=== PATIENT | male | born 1985 | race Caucasian/White ===

== ENCOUNTER 2020-06-15 07:02 | Outpatient (REF) | payer OTHER, SELFPAY ==
[2020-06-15 07:25] LABS: COVID-19 Test Negative (Negative)
== END 2020-06-15 07:03 | disposition home or self-care (01) ==
LOC: HO.LAB 07:02
PROVIDERS: Visit Provider Internal Medicine
DX: Z20.828 Contact with and (suspected) exposure to other viral communicable diseases (principal)
CPT/HCPCS: 87635

== ENCOUNTER 2020-06-17 06:13 | Outpatient (REF) | payer OTHER, SELFPAY ==
[2020-06-17 07:01] LABS: COVID-19 Test Negative (Negative)
== END 2020-06-17 06:14 | disposition home or self-care (01) ==
LOC: HO.LAB 06:13
PROVIDERS: Visit Provider Internal Medicine
DX: Z20.828 Contact with and (suspected) exposure to other viral communicable diseases (principal)
CPT/HCPCS: 87635

== ENCOUNTER 2020-06-21 06:02 | Outpatient (REF) | payer OTHER, SELFPAY ==
[2020-06-21 07:27] LABS: COVID-19 Test Negative (Negative)
== END 2020-06-21 06:03 | disposition home or self-care (01) ==
LOC: HO.LAB 06:02
PROVIDERS: Visit Provider Internal Medicine
DX: Z20.828 Contact with and (suspected) exposure to other viral communicable diseases (principal)
CPT/HCPCS: 87635

== ENCOUNTER 2020-07-05 12:57 | Outpatient (REF) | payer OTHER, SELFPAY ==
[2020-07-05 13:19] LABS: COVID-19 Test Negative (Negative)
== END 2020-07-05 12:58 | disposition home or self-care (01) ==
LOC: HO.LAB 12:57
PROVIDERS: Visit Provider Internal Medicine
DX: Z20.828 Contact with and (suspected) exposure to other viral communicable diseases (principal)
CPT/HCPCS: 87635; C9803

== ENCOUNTER → 2023-03-20 08:54 | Outpatient (BNVA) | payer OTHER, SELFPAY | PROVIDERS: Visit Provider Physician Assistant Surgical ==

== ENCOUNTER 2023-03-29 08:25 | Outpatient (REF) | payer OTHER, SELFPAY ==
[2023-04-01 11:42] LABS: H Pylori Breath Test Negative (Negative)
== END 2023-03-29 08:26 | disposition home or self-care (01) ==
LOC: HO.LNP 08:25
PROVIDERS: Visit Provider Physician Assistant Surgical
DX: Z11.2 Encounter for screening for other bacterial diseases (principal); E66.01 Morbid (severe) obesity due to excess calories
CPT/HCPCS: 83013; 99211

== ENCOUNTER 2023-03-29 08:25 | Outpatient (AMB) | payer OTHER, SELFPAY ==
--- NOTE | 2023-03-29 08:27 | A.OFFVIS_ITS ---
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 His goal is to lose weight and achieve a healthy lifestyle as well as to improve, if not resolve, obesity related medical conditions, including SAVANNAH. He reports first being concerned about his weight 10 years ago, highest weight to date was 322. Current weight is 318.4 pounds with a BMI of 47. He has tried multiple methods of weight loss including fad diets, exercise without permanent results. He lives with his best friend. 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 He wakes at:?3 pm, and goes to bed at?10 am. Dinner is at 7pm. 4 pm fast food 2 am chicken strips Other snacks: slim jims 3 per day, chips, oreos Liquids: 64-80 oz daily Alcohol/marijuana/tobacco intake: no etoh, smoke cannabis daily, no tobacco Exercise: [employer], 3-4 x per week, cardio (treadmill/stationary bike - 10-15 minutes) GERD score: 5 SHELLI score: 7 ESS score: 6 QOL score: 101 PFSH Surgical History Hx of bladder endoscopy Hx of cholecystectomy Hx of oral surgery Social History Alcohol intake: current Alcohol intake frequency: holidays/special occasions only Patient Tobacco Use Status: Never used Tobacco Physical Exam Vital Signs: Last Vital Signs Temp 97.6 F 03/29/23 08:33 Pulse 68 03/29/23 08:33 BP 127/67 03/29/23 08:33 Pulse Ox 98 03/29/23 08:33 Oxygen Delivery Method Room Air 03/29/23 08:33 BMI result Body Mass Index 47.0 Const General: cooperative, healthy appearing and no acute distress Orientation/consciousness: patient oriented x3 HEENT Head: Yes normal to inspection Ears: hearing grossly normal bilaterally General nose exam: Normal external nose present Face and sinus: Yes normal facial exam Eyes General: appearance normal, both eyes and all related structures Resp Effort & Inspection: normal respiratory effort Auscultation: clear to auscultation bilaterally Cardio Rate: regular rate Rhythm: regular rhythm Heart sounds: S1 normal heart sound present and S2 normal heart sound present GI Inspection: Yes normal to inspection, No distended and Yes obesity Palpation (GI): Soft to palpation, nontender and no guarding Auscultation: normal bowel sounds Skin General skin exam: no rashes or lesions noted Neuro General: patient oriented x3 Extrem General: No edema Psych Appearance: grossly normal Mental Status: mental status grossly normal Speech and movement: Normal speech and movement present Affect: normal affect Attitude: cooperative Assessment & Plan Assessment & Plan (1) Morbid obesity: Code(s): E66.01 - Morbid (severe) obesity due to excess calories Plan: This is a?38 yo male who will start our SWL program to prepare for bariatric surgery.? Blood work, h pylori , CXR, ECG, Abd US and UGI have been ordered. He is being scheduled for RD and BH initial consultations. He will start SWL classes and watch the first three videos before his next appointment. ? Adequate sleep of 7-8 hours per night discussed, awakening at 3 pm and going to bed at 10 am given that you work overnights. ? Purchase body composition analyzer scale (Rosy owens or Amilcar recommended) and check weight weekly. The best time to do this is first thing in the morning after going to the bathroom. 1. Nutritional counseling: Be sure to careful read the number of scoops per shake Start with 2 Pure Protein shakes ([employer], [employer], [employer]), (1 scoop in 8 oz low fat unsweetened almond milk or water each) First shake at 3pm-5pm Dinner at 6pm (10 forks of protein and 10 forks of salad/vegetables). Meal to include lean meat (beef, fish, pork, turkey, chicken), cooked vegetables or a s alad with olive oil and/or fruits (berries, pears, apples, kiwi). Avoid salt, breads, potatoes, rice, pasta, desserts. 1 protein bar ([employer] Perfect bars at [employer], [employer], or [employer]) at 9pm-11pm. Second shake at 1am-3am Another bar at 5am-7am Try to drink 64 oz of water daily and avoid soda and juices. ?2. Each shake would be drunk slowly, like coffee in a period of 2 hours. ?3. Cut each bar in 4 pieces and eat each piece in 30 min ?to make each bar last 2 hours. ?4. I emphasized the importance of measuring accurately the food portion and measure it carefully when serving the food on the plate ?5. The meal portions include 10 full-size forks of meat and 10 full-size forks of salad. You always eat the meat portion but you can replace up to half of the forks of salad/vegetables with rice, potatoes or pasta, or a fruit ?if you like. The less you do it the better weight loss will be. ?6. One full-size fork is what can be scooped on the fork without falling aside and not what can be bit with the fork. Use regular forks like those you find in a typical restaurant. ?7.? Please send me weight measurements as soon as possible and then once a week. Always include your diet and exercise plan. Alternatively come weekly at the office for weight checks and send me the measurements. ?8. Exercise counseling: Begin by watching a stretching for beginners video. Start slowly and begin to stretch your muscles. You should do this before and after each exercise session to prevent injury. Please continue to go to [facility] [facility] gym near your home. Ask the manager paper or one of the trainers how to use the machines if you are unfamiliar with them. Start elliptical with a resistance of 2. Increase resistance by 1 every 3 min to your most comfortable resistance with a max resistance of 8. Reduce the resistance by 1 every 3 minutes back down to 2 and repeat cycles for 300 calories. Alternatively, start treadmill with a speed of 3.0 and incline of 0, increasing incline by 1 every 3 minutes to the highest comfortable level (max 6 for now) then decrease in the same fashion. Repeat process to a goal of 300 calories. Goal of 2000 calories burned or more weekly. You may also consider use of the stationary bike. The easiest would be to chose the fat-burn or interval training program on the machine and do this until you reach the 300 calorie goal. Alternatively, you can manually adjust the resistance in a similar fashion as mentioned above, (resistance of 2-8 with a goal speed of 12 mph). Tracking calories is essential. 9. Alternatively start walking outside daily, tracking calories with a goal of 300 calories per day, daily. You can download the adri [employer] which can track your time, distance and calories while walking outside. You press start in the adri when you start and then stop when you are finished. 10.? It is important to communicate by text weekly, your weight and if you are having any problems with the plans. 11. Please get labs, EKG and chest X-Ray within 1 week. 12. Discussed and answered all questions regarding?obtained consent to participate in the [facility]?Registry. 13. Please follow the diet plan exactly, without any change. If you do not like something about the plan or you feel hungry, you need to communicate with me so I can help you revise the plan. You should not change the plan yourself. Text me at [phone] 14. Goal is to lose at least 12 pounds in the first month 15. Goal is to lose 10% of your weight before surgery, which is about 32 lbs. Ultimate weight goal: 286 lbs before surgery Patient is morbidly obese and is not considered stable at this time.?I spent a total of 70 minutes reviewing/updating records, examining the patient and counseling the patient on weight management as detailed above. Orders: Orders Vitamin B12 and Folate Today E66.01 - Morbid (severe) obesity due to excess calories Comprehensive Met. Panel Today E66.01 - Morbid (severe) obesity due to excess calories C Reactive Protein Today E66.01 - Morbid (severe) obesity due to excess calories Ferritin Today E66.01 - Morbid (severe) obesity due to excess calories Hemoglobin A1c Today E66.01 - Morbid (severe) obesity due to excess calories Insulin Today E66.01 - Morbid (severe) obesity due to excess calories IRON PROFILE Today E66.01 - Morbid (severe) obesity due to excess calories Lipid Panel Today E66.01 - Morbid (severe) obesity due to excess calories PTHI Today E66.01 - Morbid (severe) obesity due to excess calories TSH reflex Free T4 Today E66.01 - Morbid (severe) obesity due to excess calories Vitamin A Today E66.01 - Morbid (severe) obesity due to excess calories Vitamin B1 Today E66.01 - Morbid (severe) obesity due to excess calories Vitamin D 25-OH Total Today E66.01 - Morbid (severe) obesity due to excess calories Zinc Today E66.01 - Morbid (severe) obesity due to excess calories ECG 12 lead EKG Today E66.01 - Morbid (severe) obesity due to excess calories FL upper GI w air Today E66.01 - Morbid (severe) obesity due to excess calories Complete Blood Count Auto Diff Today E66.01 - Morbid (severe) obesity due to excess calories H Pylori Breath Test Today E66.01 - Morbid (severe) obesity due to excess calories US abdomen comp w elastography Today E66.01 - Morbid (severe) obesity due to excess calories XR chest 2V Today E66.01 - Morbid (severe) obesity due to excess calories Referrals Behavioral Health Referral E66.01 - Morbid (severe) obesity due to excess calories Nutrition/Dietitian Referral E66.01 - Morbid (severe) obesity due to excess calories Coding Level of Care Code New Pt Level 5 (01716) Diagnoses Morbid obesity E66.01 Time Spent (min) 74
[2023-03-29 08:33] VITALS: BP 127/67; PULSE 68; TEMP 36.4; O2SAT 98; BMI 47.0
== END 2023-03-29 09:38 | disposition home or self-care (01) ==
PROVIDERS: Visit Provider Physician Assistant Surgical
DX: E66.01 Morbid (severe) obesity due to excess calories (principal); Z68.42 Body mass index [BMI] 45.0-49.9, adult
CPT/HCPCS: 99205

== ENCOUNTER 2023-04-04 12:49 | Outpatient (REF) | payer OTHER, SELFPAY ==
--- NOTE | ~2023-04-04 | XR_ITS ---
EXAMINATION: XR CHEST CLINICAL INFORMATION: Morbid (severe) obesity due to excess calories COMPARISON: Chest 10/16/2015 TECHNIQUE: 2 views of the chest were obtained. FINDINGS: The lungs are clear with no focal consolidation, interstitial pulmonary edema or pneumothorax. No pleural effusion. The cardiomediastinal silhouette is within normal limits. No acute osseous abnormality. XR/XR chest 2V IMPRESSION: No acute cardiopulmonary disease.
--- NOTE | 2023-04-04 12:55 | ECG_ITS ---
Test Reason : e66.01 Blood Pressure : / mmHG Vent. Rate : 062 BPM Atrial Rate : 062 BPM P-R Int : 148 ms QRS Dur : 080 ms QT Int : 410 ms P-R-T Axes : 025 -10 009 degrees QTc Int : 416 ms Normal sinus rhythm Normal ECG When compared with ECG of 19-FEB-2017 10:58, No significant changes seen Referred By: Vidal Tian Electronically Signed By:Davion Maldonado
[2023-04-04 13:08] LABS: MANUAL DIFF FLAG NO
[2023-04-04 13:13] LABS: Basophils Percent Auto 0.7 % (0-2); Eosinophils Absolute Auto 0.1 X10*3/uL (0.0-0.4); Eosinophils Percent Auto 1.6 % (0-4); Hematocrit 43.4 % (42.0-52.0); Hemoglobin 14.3 g/dl (14.0-18.0); Imm Gran Abs Auto 0.02 X10*3/uL (0.00-0.03); Imm Gran Pct Auto 0.3 % (0.0-0.4); Lymphocytes Absolute Auto 1.5 X10*3/uL (1.2-4.9); Lymphocytes Percent Auto 25.4 % (20-40); Mean Corpuscular HGB Conc 32.9 g/dl (31.0-36.0); Mean Corpuscular Hemoglobin 28.4 pg (27.0-33.0); Mean Corpuscular Volume 86.1 fL (80.0-98.0); Mean Platelet Volume 8.6 fL (9.4-12.4); Monocytes Absolute Auto 0.4 X10*3/uL (0.1-1.2); Monocytes Percent Auto 7.6 % (2-11); Neutrophils Absolute Auto 3.7 x10*3/uL (2.0-8.3); Neutrophils Percent Auto 64.4 % (45-73); Platelet Count 383 X10*3/uL (160-400); Red Blood Count 5.04 X10*6/uL (4.60-5.80); Red Cell Distribution Width 13.1 % (11.0-16.0); White Blood Count 5.8 X10*3/uL (4.8-10.8)
[2023-04-04 13:37] LABS: Estimated Average Glucose 100 mg/dL; Hemoglobin A1c % 5.1 %
[2023-04-04 15:02] LABS: Alanine Aminotransferase 52 U/L (0-40); Albumin Level 4.3 g/dL (3.5-5.0); Alkaline Phosphatase 74 U/L (39-117); Anion Gap 15 (12-20); Aspartate Amino Transferase 42 U/L (5-37); Bilirubin Total 0.8 mg/dL (0.0-1.0); Blood Urea Nitrogen 14 mg/dL (9-16); C Reactive Protein 0.45 mg/dL (< or = 0.50); Calcium 9.3 mg/dL (8.4-10.2); Carbon Dioxide 23 mmol/L (22-29); Chloride 105 mmol/L (96-108); Cholesterol 180 mg/dL; Estimated Glomerular Filt Rate > 60; Glucose Random 81 mg/dL (60-115); HDL Cholesterol 29 mg/dL; Iron 95 mcg/dL (45-160); LDL Cholesterol Calculated 131 mg/dl; Percent Iron Saturation 29 % (15-50); Sodium 139 mmol/L (135-145); Total Iron Binding Capacity 326 mcg/dL (228-428); Total Protein 8.1 g/dL (6.5-8.0); Triglycerides 104 mg/dL; Unsaturated Iron Binding 231 ug/dL
[2023-04-04 15:10] LABS: Ferritin 267 ng/mL (20-250); Insulin 11 uU/mL (2-29); TSH reflex Free T4 0.87 uIU/mL (0.32-4.0); Vitamin D 25-OH Total 17.8 ng/mL (>30)
[2023-04-04 15:19] LABS: Folate 10.3 ng/mL (> or = 4.0); Vitamin B12 847 pg/mL (200-900)
[2023-04-06 19:38] LABS: Calcium (PTHI) 9.7 mg/dL (8.6-10.3); PTHI 67 pg/mL (16-77)
[2023-04-08 15:43] LABS: Zinc 73 mcg/dL (60-130)
[2023-04-10 15:18] LABS: Vitamin B1 <6 nmol/L (8-30)
[2023-04-12 01:29] LABS: Vitamin A 44 mcg/dL (38-98)
== END 2023-04-04 12:50 | disposition home or self-care (01) ==
LOC: HO.XRAY 12:49
PROVIDERS: Visit Provider Physician Assistant Surgical
DX: E66.01 Morbid (severe) obesity due to excess calories (principal); Z20.2 Contact with and (suspected) exposure to infections with a predominantly sexual mode of transmission
CPT/HCPCS: 36415; 71046; 80053; 80061; 82306; 82607; 82728; 82746; 83036; 83525; 83540; 83970; 84425; 84443; 84590; 84630; 85025; 86140; 93005

== ENCOUNTER → 2023-04-04 12:55 | Outpatient (BNV) | payer OTHER, SELFPAY | PROVIDERS: Visit Provider Internal Medicine Cardiovascular Disease | DX: E66.01 Morbid (severe) obesity due to excess calories (principal) | CPT/HCPCS: 93010 ==

== ENCOUNTER 2023-04-11 13:00 | Outpatient (AMB) | payer OTHER, SELFPAY ==
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
== END 2023-04-11 14:23 | disposition home or self-care (01) ==
LOC: HO.HBST 13:43
PROVIDERS: Visit Provider Counselor Mental Health
DX: F43.20 Adjustment disorder, unspecified (principal)
CPT/HCPCS: 90791

== ENCOUNTER → 2023-04-11 13:00 | Outpatient (BNVA) | payer OTHER, SELFPAY | PROVIDERS: Visit Provider Counselor Mental Health ==

== ENCOUNTER 2023-04-18 09:14 | Outpatient (AMB) | payer OTHER, SELFPAY ==
--- NOTE | 2023-04-18 09:06 | MHC.AMNUTRGE ---
Intake Intake Visit Reasons: VIDEO Initial Nutrition SWL Allergies No Known Allergies Allergy (Verified 03/29/23 08:37) HPI Nutrition Presentation Reason for consult elevated BMI Diet Assmnt Details Hasn't purchased the bars yet. Has the shake and in between has a salad with protein. not sure how much as he doesn't measure portions Two Each shake 1 scoop Premier protein with almond milk Lost his grandmother last Sunday - is an emotional eaterso had been struggling. Exercise: Gym 2-3x per week cardio (bike, elliptical, treadmill) weight lifting machine 60 - 90 minutes SWL online classes: none yet Dietary counseling reduction Meal frequency regular: lunch, dinner and snacks Lifestyle Eating out 4 or more times/week Food frequency Dairy: daily, Fruit: daily, Vegetables: several times weekly (likes lettuce, carrots, cucumbers ), Grains/pasta/breads/cereal (carbs): daily, Meats/poultry/fish (protein): daily (no seafood. ), Water: daily, Soda: daily, Juice: never, Coffee: occasionally and Sports/energy drinks: daily (energy drinks ) Diagnosis Nutrition problem #1 overweight/obesity As related to (etiology) #1 excess energy intake and physical inactivity As evidenced by (sign/symptom) #1 high BMI Monitoring/Goals Nutrition problem monitoring total energy intake, level of knowledge/skill, total PRO intake, total CHO intake and weight Outcome progress progressing Learning/Education Readiness to learn good Stages of change action Educational materials provided Yes Most Recent Diabetes Results: Cholesterol 180 mg/dL 04/04/23 HDL Cholesterol 29 mg/dL 04/04/23 Triglycerides 104 mg/dL 04/04/23 Creatinine 0.96 mg/dL (0.5-1.4) 04/04/23 Blood Urea Nitrogen 14 mg/dL (9-16) 04/04/23 Sodium 139 mmol/L (135-145) 04/04/23 Potassium 4.0 mmol/L (3.3-5.1) 04/04/23 Chloride 105 mmol/L (96-108) 04/04/23 Carbon Dioxide 23 mmol/L (22-29) 04/04/23 Calcium 9.3 mg/dL (8.4-10.2) 04/04/23 AST 42 U/L (5-37) H 04/04/23 ALT 52 U/L (0-40) H 04/04/23 Total Protein 8.1 g/dL (6.5-8.0) H 04/04/23 Albumin 4.3 g/dL (3.5-5.0) 04/04/23 PFSH Surgical History Hx of bladder endoscopy Hx of cholecystectomy Hx of oral surgery Social History Alcohol intake: current Alcohol intake frequency: holidays/special occasions only Patient Tobacco Use Status: Never used Tobacco Assessment & Plan Assessment & Plan (1) Morbid obesity: Code(s): E66.01 - Morbid (severe) obesity due to excess calories Patient Instructions: Recommended for now, focus on high protein meals and consider increasing shakes until able to get the bars . Also recommended increasing exercise to goal of 4x per week, 30 minutes cardio and 30-60 minutes weights. complete online classes and f/u 05/17 9:30 Telehealth Telehealth Location of provider rendering services: practice address Location of patient: address on file Patient Identification confirmed using: Name, : Yes Telehealth method: video Patient verbally consented to treatment: Yes Patient verbally consented to billing insurance company: Yes Patient informed of any privacy concerns related to visit: Yes Minutes spent on Phone/Video with Pt.: 25 Coding Level of Care Code Nutr Indiv Intake (42692) Diagnoses Morbid obesity E66.01 Time Spent (min) 25
== END 2023-04-18 09:26 | disposition home or self-care (01) ==
LOC: HO.HBS 09:14
PROVIDERS: Visit Provider Dietitian, Registered
DX: E66.01 Morbid (severe) obesity due to excess calories (principal)

== ENCOUNTER → 2023-04-18 09:14 | Outpatient (BNVA) | payer OTHER, SELFPAY | PROVIDERS: Visit Provider Dietitian, Registered | DX: E66.01 Morbid (severe) obesity due to excess calories (principal); Z71.3 Dietary counseling and surveillance | CPT/HCPCS: 97802 ==

== ENCOUNTER 2023-04-20 08:00 | Outpatient (AMB) | payer OTHER, SELFPAY ==
--- NOTE | 2023-04-20 09:12 | MHC.OFFVISWM ---
Intake Intake Visit Reasons: TV Follow Up/[facility]idal Allergies No Known Allergies Allergy (Verified 04/20/23 09:13) Medication List - Last Reconciled 04/20/23 by Damion Smallwood MD cholecalciferol (vitamin D3) 125 mcg PO DAILY PRN 90 days [JXT5 supplement PO BID] thiamine HCl (vitamin B1) 100 mg PO DAILY 90 days HPI TV Follow Up/Vidal HPI Details Start time: 8.55am, End time: 9.38am ?I spent 38 minutes speaking with the patient on the phone plus an additional 5 minutes reviewing and updating records for a total of 43 minutes HPI Comments History of Present Illness Details Overall weight loss: 7.9lbs, or 2.48% TBWL Is doing 2 Pure protein shakes (1 scoop each in 8oz almond milk), one Zone Perfect protein bar, 2 boiled eggs and a meal (10 forks of protein and 10 forks of salad or vegetables) Exercise: Gym x3/wk doing weight exercises and treadmill for 20min PFSH Medical History (Updated 04/20/23 @ 09:15 by Damion Smallwood MD) Back pain Knee pain Surgical History Hx of bladder endoscopy Hx of cholecystectomy Hx of oral surgery Social History Alcohol intake: current Alcohol intake frequency: holidays/special occasions only Patient Tobacco Use Status: Never used Tobacco Assessment & Plan Assessment & Plan (1) Morbid obesity: Code(s): E66.01 - Morbid (severe) obesity due to excess calories Plan: 1. Plan for lap sleeve gastrectomy. If diaphragmatic or ventral hernias are present at time of surgery, these will be repaired laparoscopically as well. Risks and complications were discussed in detail including possible conversion to an open procedure, anastomotic leak, bleeding requiring transfusion, small bowel obstruction, , DVT and pulmonary embolism, cardiac, or pulmonary complications, as senior living complications such as anastomotic ulcer, insufficient weight loss and vitamin deficiencies. I emphasized the importance of close follow-up, adherence to instructions and good communication. 2. Continue same nutritional plan of dinner at 6pm (10 forks of protein and 10 forks of salad/vegetables), 2 Pure Protein shakes (1 scoop in 8 oz low fat unsweetened almond milk or water each) at 9pm-11pm and 1am-3am, a Zone Perfect protein bar at 4am-6am and a second bar or 2 boiled eggs at 7am-9am. First shake at 3pm-5pm 3. Exercise: Start treadmill with an incline of 2.0 and speed of 3.0. Increase incline by 1 every 3 min to a max incline of 8.0, stay 3min at 8.0 and then return to 2.0 and repeat same steps until calorie goal is met. Goal is to burn 2000 calories per week on exercise, which means either 300 calories daily, or 400 calories 5 days per week, or 500 calories 4 days per week, or 650 calories 3 days per week. 4. Alternatively purchase a stationary bike, elliptical or treadmill at home that can track calories. Let me know if you do so I can give you an exercise plan. 5. Buy a body compositon scale and send me weight measurements weekly on (2) SAVANNAH (obstructive sleep apnea): Code(s): G47.33 - Obstructive sleep apnea (adult) (pediatric) (3) Hyperlipidemia: Code(s): E78.5 - Hyperlipidemia, unspecified Telehealth Telehealth Location of provider rendering services: practice address Location of patient: address on file Patient Identification confirmed using: Name, : Yes Telehealth method: voice only Patient verbally consented to treatment: Yes Patient verbally consented to billing insurance company: Yes Patient informed of any privacy concerns related to visit: Yes Minutes spent on Phone/Video with Pt.: 43 Coding Level of Care Code Tele Est Pt Level 5 (84640) Diagnoses Morbid obesity E66.01 SAVANNAH (obstructive sleep apnea) G47.33 Hyperlipidemia E78.5 Time Spent (min) 43
== END 2023-04-20 09:39 | disposition home or self-care (01) ==
LOC: HO.HBS 08:00
PROVIDERS: Visit Provider Surgery
DX: E66.01 Morbid (severe) obesity due to excess calories (principal); Z68.39 Body mass index [BMI] 39.0-39.9, adult; G47.33 Obstructive sleep apnea (adult) (pediatric); E78.5 Hyperlipidemia, unspecified
CPT/HCPCS: 99215

== ENCOUNTER → 2023-04-20 08:00 | Outpatient (BNVA) | payer OTHER, SELFPAY | PROVIDERS: Visit Provider Surgery ==

== ENCOUNTER 2023-05-11 08:06 | Outpatient (AMB) | payer OTHER, SELFPAY ==
--- NOTE | 2023-05-11 08:30 | MHC.OFFVISWM ---
Intake VS Expanded 05/11/23 08:55 Height 5 ft 9 in Weight 297 lb 8 oz BMI 43.9 Body Fat 142.9 Body Fat Percentage 48 Free Fat Mass 155 Visceral Mass 26 Water Mass 111.9 BMR 1,888 Intake Visit Reasons: TV Follow Up SWL Allergies No Known Allergies Allergy (Verified 04/20/23 09:13) HPI TV Follow Up SWL HPI Details Start time: 8.30am, End time: 9.02am ?I spent 27 minutes speaking with the patient on the phone plus an additional 5 minutes reviewing and updating records for a total of 32 minutes HPI Comments History of Present Illness Details Overall weight loss: 20.6lbs, or 6.47% TBWL Is doing one Fairlife protein shake or 2 eggs, another protein shake, one meal (10 forks of protein and 10 forks of salad or vegetables), another shake or a protein bar, 2 Atkins protein bars Exercise: doing Gym x2-3/week doing treadmill for 300 calories and outside walking x2/week for 1000 PFSH Medical History (Updated 04/20/23 @ 09:15 by Damion Smallwood MD) Back pain Knee pain Surgical History Hx of oral surgery Hx of bladder endoscopy Hx of cholecystectomy Social History Alcohol intake: current Alcohol intake frequency: holidays/special occasions only Patient Tobacco Use Status: Never used Tobacco Assessment & Plan Assessment & Plan (1) Morbid obesity: Code(s): E66.01 - Morbid (severe) obesity due to excess calories Plan: 1. Change nutritional plan to one Fairlife protein shake at 4pm-6pm, dinner at 7pm (10 forks of protein and 10 forks of salad/vegetables), one Atkins protein bar at 9pm-11pm, 2 boiled eggs at 12am-2am and 2 more Atkins protein bars at 3am-5am and 6am-8am. 2. Exercise: Continue Gym x2-3/week doing treadmill for 300 calories each time and outside walking x2/week for 1000 calories per walk 3. Please purchase a stationary bike, elliptical or treadmill at home that can track calories. Let me know if you do so I can give you an exercise plan. 4. Continue to send me weight measurements weekly on Wednesdays Telehealth Telehealth Location of provider rendering services: practice address Location of patient: address on file Patient Identification confirmed using: Name, : Yes Telehealth method: voice only Patient verbally consented to treatment: Yes Patient verbally consented to billing insurance company: Yes Patient informed of any privacy concerns related to visit: Yes Minutes spent on Phone/Video with Pt.: 32 Coding Level of Care Code Tele Est Pt Level 4 (57358) Diagnoses Morbid obesity E66.01 Time Spent (min) 32
[2023-05-11 08:55] VITALS: BMI 43.9
== END 2023-05-11 09:03 | disposition home or self-care (01) ==
LOC: HO.HBS 08:06
PROVIDERS: Visit Provider Surgery
DX: E66.01 Morbid (severe) obesity due to excess calories (principal); Z68.41 Body mass index [BMI] 40.0-44.9, adult
CPT/HCPCS: 99214

== ENCOUNTER → 2023-05-11 08:06 | Outpatient (BNVA) | payer OTHER, SELFPAY | PROVIDERS: Visit Provider Surgery ==

== ENCOUNTER 2023-05-15 09:09 | Outpatient (REF) | payer OTHER, SELFPAY ==
--- NOTE | ~2023-05-15 | US_ITS ---
EXAMINATION: US COMPLETE ABDOMEN WITH LIVER ELASTOGRAPHY CLINICAL INFORMATION: Obesity COMPARISON: Previous CT of the abdomen and pelvis August 2014 TECHNIQUE: Real-time imaging of the abdominal viscera. Noninvasive ultrasound liver fibrosis assessment is performed using Brady ElastPQ point quantification shear wave elastography (2D-SWE) with a C5-2 MHz transducer. Multiple elastography samples are obtained. FINDINGS: PANCREAS: Not well visualized overlying bowel gas. ABDOMINAL AORTA: Not well visualized due to bowel gas. INFERIOR VENA CAVA: Not well visualized due to bowel gas. LIVER: Liver echotexture is increased. The liver is normal in size and contour. No focal lesion or intrahepatic biliary duct dilatation. The right lobe measures 16.4 cm in length. The left lobe measures 10.6 cm in length. Portal flow is normal/hepatopedal Shear wave liver elastography median stiffness is 1.3 m/s (reference: normal median stiffness is 1.3 m/s or less). IQR/median stiffness to assess sampling precision is 0.08 (reference: good quality data set is IQR/median stiffness of 0.15 or less). GALLBLADDER: Surgically removed. COMMON BILE DUCT: Normal in caliber measuring 0.4 cm in diameter. RIGHT KIDNEY: Normal. No hydronephrosis. No renal calculi or focal parenchymal lesions. The kidney measures 11 cm in maximum dimension. LEFT KIDNEY: Normal. No hydronephrosis. No renal calculi or focal parenchymal lesions. The kidney measures 12.5 cm in maximum dimension. SPLEEN: Normal. The spleen measures 12.8 cm in maximum dimension. FREE FLUID: None. US/US abdomen comp w elastography IMPRESSION: 1. Impression: Echogenic liver probably representing fatty infiltration. Limited visualization of the pancreas, IVC and aorta. 2. Liver elastography: Adequate liver sampling. Normal liver stiffness. REFERENCE: Society of Radiologists in Ultrasound Liver Stiffness Thresholds (2020): LIVER STIFFNESS THRESHOLDS: *Liver Stiffness equal or less than 1.3 m/s: High probability of being normal. *Liver Stiffness less than 1.7 m/s: In the absence of other known clinical signs, rules out compensated advanced chronic liver disease. *Liver Stiffness 1.7-2.1 m/s: Suggestive of compensated advanced chronic liver disease but need further test for confirmation. *Liver Stiffness over 2.1 m/s: Rules in compensated advanced chronic liver disease. *Liver Stiffness over 2.4 m/s: Suggestive of clinically significant portal hypertension. QUALITY OF DATA SET: *IQR/Median value equal or less than 0.15 implies a quality data set. *IQR/Median value over 0.15 implies a poor quality data set. SIGNIFICANT CHANGE FROM PRIOR EXAM: Significant change if liver stiffness measurement is 10% or greater from prior exam. OTHER CONSIDERATIONS: The stage of liver fibrosis may be overestimated in the setting of acute hepatitis, liver inflammation, elevated liver function tests, hepatic vascular congestion, obstructive cholestasis, non-fasting state, and infiltrative diseases such as amyloidosis and lymphoma. In some patients with NAFLD, the liver stiffness thresholds for compensated advanced chronic liver disease may be lower. In causes other than viral hepatitis and NAFLD, liver stiffness thresholds are not well established.
--- NOTE | ~2023-05-15 | FL_ITS ---
EXAMINATION: XR FLUOROSCOPY UPPER GI WITH AIR CLINICAL INFORMATION: Preop bariatric surgery. 38-year-old male, mild GERD. No additional symptoms. COMPARISON: None TECHNIQUE: Fluoroscopic air contrast upper GI examination was performed utilizing standard techniques with thin and thick barium and effervescent granules. Numerous spot images were obtained. FINDINGS: Hypopharyngeal structures appear normal without evidence of mass or diverticulum. There was no significant cricopharyngeal achalasia. Dual and single contrast images of the esophagus demonstrate normal caliber, contour, and mucosal pattern. No evidence of stricture, mass, or ulcerations identified. Esophageal peristalsis was normal. No evidence of hiatus hernia identified. Minor gastroesophageal reflux was seen during the course of the examination to the level of the aortic arch. Dual contrast and single contrast images of the stomach demonstrated normal contour and mucosal pattern without evidence of mass, ulceration, or other abnormality. Contrast freely passed into the gastric antrum and duodenal bulb without delay. Single and air-contrast images of the duodenal bulb demonstrate no abnormality. The duodenal sweep has a normal appearance, course, and mucosal fold appearance. The imaged proximal jejunum has a normal fold pattern and caliber. FLUOROSCOPY TIME: 2 minutes 54 seconds Number of Spot Images: 16 spot exposures, and 5 image capture cine runs. DOSE AREA PRODUCT: 167.8 mGy-m2 (milligray-meter squared) FL/FL upper GI w air IMPRESSION: 1. Minor GE reflux present during the examination. No significant hiatus hernia. 2. Otherwise, normal examination.
== END 2023-05-15 09:10 | disposition home or self-care (01) ==
LOC: HO.US 09:09
PROVIDERS: Visit Provider Physician Assistant Surgical
DX: E66.01 Morbid (severe) obesity due to excess calories (principal)
CPT/HCPCS: 74246; 76705; 76981

== ENCOUNTER → 2023-05-15 09:12 | Outpatient (BNV) | payer OTHER, SELFPAY | PROVIDERS: Visit Provider Radiology Diagnostic Radiology | DX: K21.9 Gastro-esophageal reflux disease without esophagitis (principal) | CPT/HCPCS: 74246 ==

== ENCOUNTER 2023-05-16 13:08 | Outpatient (AMB) | payer OTHER, SELFPAY ==
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
== END 2023-05-16 13:59 | disposition home or self-care (01) ==
LOC: HO.HBST 13:08
PROVIDERS: Visit Provider Counselor Mental Health
DX: F43.20 Adjustment disorder, unspecified (principal)
CPT/HCPCS: 90834

== ENCOUNTER → 2023-05-16 13:08 | Outpatient (BNVA) | payer OTHER, SELFPAY | PROVIDERS: Visit Provider Counselor Mental Health ==

== ENCOUNTER 2023-05-17 09:48 | Outpatient (AMB) | payer OTHER, SELFPAY ==
--- NOTE | 2023-05-17 09:37 | A.OFFVIS_ITS ---
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 Last appt was provided with recipe resources but pt hasn't yet looked at the email Exercise: Gym 2-3x per week cardio (bike, elliptical, treadmill) weight lifting machine 60 - 90 minutes SWL online classes: none yet, was having issues with the platform , has been resolved now and pt confirms it is working for him Dietary counseling reduction Diagnosis Nutrition problem #1 overweight/obesity As related to (etiology) #1 excess energy intake and physical inactivity As evidenced by (sign/symptom) #1 high BMI Monitoring/Goals Nutrition problem monitoring total energy intake, level of knowledge/skill, total PRO intake, total CHO intake and weight Outcome progress progressing Learning/Education Readiness to learn good Stages of change action Educational materials provided Yes Most Recent Diabetes Results: No Data to Display [facility] Medical History (Updated 04/20/23 @ 09:15 by Damion Smallwood MD) Back pain Knee pain Surgical History Hx of oral surgery Hx of bladder endoscopy Hx of cholecystectomy Social History Alcohol intake: current Alcohol intake frequency: holidays/special occasions only Patient Tobacco Use Status: Never used Tobacco Assessment & Plan Assessment & Plan (1) Morbid obesity: Code(s): E66.01 - Morbid (severe) obesity due to excess calories Patient Instructions: Patient is doing great and is a few pounds away from his goal weight for surgery. He will finish his online classes today and will be put on my schedule next week as standby - plan is to provide nutrition clearance at follow-up appointment Telehealth Telehealth Location of provider rendering services: practice address Location of patient: address on file Patient Identification confirmed using: Name, : Yes Telehealth method: video Patient verbally consented to treatment: Yes Patient verbally consented to billing insurance company: Yes Patient informed of any privacy concerns related to visit: Yes Minutes spent on Phone/Video with Pt.: 20 Coding Level of Care Code Nutr Indiv Subseq (25200) Diagnoses Morbid obesity E66.01 Time Spent (min) 20
[2023-05-17 09:46] VITALS: BMI 43.0
== END 2023-05-17 09:50 | disposition home or self-care (01) ==
LOC: HO.HBS 09:48
PROVIDERS: Visit Provider Dietitian, Registered
DX: E66.01 Morbid (severe) obesity due to excess calories (principal)

== ENCOUNTER → 2023-05-17 09:48 | Outpatient (BNVA) | payer OTHER, SELFPAY | PROVIDERS: Visit Provider Dietitian, Registered | DX: E66.01 Morbid (severe) obesity due to excess calories (principal); Z68.41 Body mass index [BMI] 40.0-44.9, adult; Z71.3 Dietary counseling and surveillance | CPT/HCPCS: 97803 ==

== ENCOUNTER → 2023-05-24 15:00 | Outpatient (BNVA) | payer OTHER, SELFPAY | PROVIDERS: Visit Provider Dietitian, Registered | DX: E66.9 Obesity, unspecified (principal); Z71.3 Dietary counseling and surveillance | CPT/HCPCS: 97803 ==

== ENCOUNTER 2023-06-08 08:20 | Outpatient (AMB) | payer OTHER, SELFPAY ==
--- NOTE | 2023-06-08 09:04 | MHC.OFFVISWM ---
Intake VS Expanded 06/08/23 09:14 Height 5 ft 9 in Weight 284 lb 2 oz BMI 42.0 Body Fat % 44.9 Body Fat Mass 127.6 Fat Free Mass 156.8 Visceral Fat Rating 24 Body Water % 39.8 Body Water Mass 113.1 Basal Metabolic Rate/Score 1,904 Intake Visit Reasons: TV Follow Up SWL Allergies No Known Allergies Allergy (Verified 04/20/23 09:13) HPI TV Follow Up SWL HPI Details Start time: 9.01am, End time: 9.21am ?I spent 15 minutes speaking with the patient on the phone plus an additional 5 minutes reviewing and updating records for a total of 20 minutes HPI Comments History of Present Illness Details Overall weight loss: 34.2lbs, or 10.74% TBWL Is doing 2 Fairlife protein shakes, 2 Atkins protein bars and one meal (10 forks of protein and 10 forks of salad or vegetables) Exercise: Gym x3-4/week doing treadmill or elliptical for 300 calories and walking outside x2/week for 1200 calories PFSH Medical History (Updated 04/20/23 @ 09:15 by Damion Smallwood MD) Back pain Knee pain Surgical History Hx of oral surgery Hx of bladder endoscopy Hx of cholecystectomy Social History Alcohol intake: current Alcohol intake frequency: holidays/special occasions only Patient Tobacco Use Status: Never used Tobacco Assessment & Plan Assessment & Plan (1) Morbid obesity: Code(s): E66.01 - Morbid (severe) obesity due to excess calories Plan: 1. Please change nutritional plan to one Fairlife protein shake, 3 Atkins protein bars and one meal (10 forks of protein and 10 forks of salad or vegetables) 2. Exercise: Continue gym x3-4/week doing treadmill or elliptical but increase to 350 calories per work-out and continue walking outside x2/week for 1200 calories 3. Change treadmill with an incline of 5.0 and speed of 3.2. Increase incline by 1 every 3 min to a max incline of 11.0, stay 3min at 11.0 and then return to 5.0 and repeat same steps until calorie goal is met. 4. Continue to send weight measurements weekly on Telehealth Telehealth Location of provider rendering services: practice address Location of patient: address on file Patient Identification confirmed using: Name, : Yes Telehealth method: voice only Patient verbally consented to treatment: Yes Patient verbally consented to billing insurance company: Yes Patient informed of any privacy concerns related to visit: Yes Minutes spent on Phone/Video with Pt.: 20 Coding Level of Care Code Tele Est Pt Level 3 (10926) Diagnoses Morbid obesity E66.01 Time Spent (min) 20
[2023-06-08 09:14] VITALS: BMI 42.0
== END 2023-06-08 09:22 | disposition home or self-care (01) ==
LOC: HO.HBS 08:20
PROVIDERS: Visit Provider Surgery
DX: E66.01 Morbid (severe) obesity due to excess calories (principal); Z68.41 Body mass index [BMI] 40.0-44.9, adult
CPT/HCPCS: 99213

== ENCOUNTER → 2023-06-08 08:20 | Outpatient (BNVA) | payer OTHER, SELFPAY | PROVIDERS: Visit Provider Surgery ==

== ENCOUNTER 2023-07-06 08:23 | Outpatient (AMB) | payer OTHER, SELFPAY ==
--- NOTE | 2023-07-06 09:37 | A.OFFVIS_ITS ---
Intake VS Expanded 07/06/23 09:47 Height 5 ft 9 in Weight 280 lb 4 oz BMI 41.4 Body Fat % 44 Body Fat Mass 123.3 Fat Free Mass 157 Visceral Fat Rating 23 Body Water % 40.4 Body Water Mass 113.2 Basal Metabolic Rate/Score 1,908 Intake Visit Reasons: TV Follow Up SWL Allergies No Known Allergies Allergy (Verified 04/20/23 09:13) HPI TV Follow Up SWL HPI Details Start time: 9.30am, End time: 10am ?I spent 25 minutes speaking with the patient on the phone plus an additional 5 minutes reviewing and updating records for a total of 30 minutes HPI Comments History of Present Illness Details Overall weight loss: 38lbs, or 11.93% TBWL Is doing one Fairlife protein shake, 3 Zone Perfect protein bars and one meal (10 forks of protein and 10 forks of salad or vegetables) Exercise: treadmill for 400-450 calories x5/week (speed: 3.2mph and incline 5- 11) and 2 hikes for 1000 calories each PFSH Medical History (Updated 04/20/23 @ 09:15 by Damion Smallwood MD) Back pain Knee pain Surgical History Hx of oral surgery Hx of bladder endoscopy Hx of cholecystectomy Social History Alcohol intake: current Alcohol intake frequency: holidays/special occasions only Patient Tobacco Use Status: Never used Tobacco Physical Exam Vital Signs: BMI result Body Mass Index 41.4 Assessment & Plan Assessment & Plan (1) Morbid obesity: Code(s): E66.01 - Morbid (severe) obesity due to excess calories Plan: 1. Plan for lap sleeve gastrectomy including upper GI endoscopy. All tests has been completed and reviewed and the patient is cleared for the surgery. ?If diaphragmatic or ventral hernias are present at time of surgery, these will be repaired laparoscopically as well. Risks and complications were discussed in detail including possible conversion to an open procedure, anastomotic leak, bleeding requiring transfusion, small bowel obstruction, , DVT and pulmonary embolism, cardiac, or pulmonary complications, as penitentiary co mplications such as anastomotic ulcer, insufficient weight loss and vitamin deficiencies. I emphasized the importance of close follow-up, adherence to instructions and good communication. So far he has proven to be an excellent communicator and very compliant with all our directions accomplishing a great weight loss. I believe that he is an excellent candidate and he is ready. 2. Continue same nutritional plan of one Fairlife protein shake, 3 Zone Perfect protein bars and one meal (10 forks of protein and 10 forks of salad or vegetables) 3. Exercise: continue treadmill but increase to 450-500 calories x5/week. Maintain speed at 3.2mph and increase incline to 6-12. Continue with 2 hikes for 1000 calories each. Replace hike with another treadmill session if hike is not possible due to weather. 4 Continue to send me weight measurements weekly on Telehealth Telehealth Location of provider rendering services: practice address Location of patient: address on file Patient Identification confirmed using: Name, : Yes Telehealth method: voice only Patient verbally consented to treatment: Yes Patient verbally consented to billing insurance company: Yes Patient informed of any privacy concerns related to visit: Yes Minutes spent on Phone/Video with Pt.: 30 Coding Level of Care Code Tele Est Pt Level 4 (36717) Diagnoses Morbid obesity E66.01 Time Spent (min) 30
[2023-07-06 09:47] VITALS: BMI 41.4
== END 2023-07-06 10:35 | disposition home or self-care (01) ==
LOC: HO.HBS 08:23
PROVIDERS: Visit Provider Surgery
DX: E66.01 Morbid (severe) obesity due to excess calories (principal)
CPT/HCPCS: 99214

== ENCOUNTER → 2023-07-06 08:23 | Outpatient (BNVA) | payer OTHER, SELFPAY | PROVIDERS: Visit Provider Surgery ==

== ENCOUNTER → 2023-07-09 16:12 | Outpatient (REF) | payer OTHER, SELFPAY | LOC: HO.SL 16:12 | PROVIDERS: Visit Provider Surgery | DX: G47.33 Obstructive sleep apnea (adult) (pediatric) (principal) | CPT/HCPCS: 95806 ==

== ENCOUNTER → 2023-07-09 16:19 | Outpatient (BNV) | payer OTHER, SELFPAY | PROVIDERS: Visit Provider Internal Medicine | DX: R06.83 Snoring (principal) | CPT/HCPCS: 95806 ==

== ENCOUNTER 2023-07-11 08:17 | Outpatient (AMB) | payer OTHER, SELFPAY ==
[2023-07-11 12:22] VITALS: BMI 41.4
--- NOTE | 2023-07-11 12:22 | A.OFFVIS_ITS ---
Intake VS Expanded 07/11/23 12:22 Height 5 ft 9 in Weight 280 lb 4 oz BMI 41.4 Body Fat % 44 Body Fat Mass 123.3 Fat Free Mass 157 Visceral Fat Rating 23 Body Water % 40.4 Body Water Mass 113.2 Basal Metabolic Rate/Score 1,908 Intake Visit Reasons: TV Pre Op LSG 07/17/23 Allergies No Known Allergies Allergy (Verified 07/11/23 13:43) Medication List - Last Reconciled 07/11/23 by Damion Smallwood MD cholecalciferol (vitamin D3) 125 mcg PO DAILY PRN 90 days [JXT5 supplement PO BID] ondansetron 4 mg PO Q12H pantoprazole 40 mg PO DAILY polyethylene glycol 3350 (Miralax) 17 grams PO DAILY sucralfate 10 mL PO BID thiamine HCl (vitamin B1) 100 mg PO DAILY 90 days HPI TV Pre Op LSG 07/17/23 HPI Details Start time: 1.30pm, End time: 2pm ?I spent 25 minutes speaking with the patient on the phone plus an additional 5 minutes reviewing and updating records for a total of 30 minutes HPI Comments History of Present Illness Details Overall weight loss: 38 lbs, or 11.93% TBWL Is doing one ebindlelife shake, 3 Zone Perfect protein bars and one meal (10 forks of protein and 10 forks of salad or vegetables) Exercise: treadmill (incline 6-12) x3-4/wk for 500 calories, and hiking on weekends for up to 1000 calories per hike PFSH Medical History (Updated 07/11/23 @ 12:21 by Damion Smallwood MD) Back pain Knee pain Surgical History Hx of oral surgery Hx of bladder endoscopy Hx of cholecystectomy Social History Alcohol intake: current Alcohol intake frequency: holidays/special occasions only Patient Tobacco Use Status: Never used Tobacco Physical Exam Vital Signs: BMI result Body Mass Index 41.4 Assessment & Plan Assessment & Plan (1) Morbid obesity: Code(s): E66.01 - Morbid (severe) obesity due to excess calories Plan: 1. Plan for lap sleeve gastrectomy including upper GI endoscopy. All tests has been completed and reviewed and the patient is cleared for the surgery. ?If diaphragmatic or ventral hernias are present at time of surgery, these will be repaired laparoscopically as well. Risks and complications were discussed in detail including possible conversion to an open procedure, anastomotic leak, bleeding requiring transfusion, small bowel obstruction, , DVT and pulmonary embolism, cardiac, or pulmonary complications, as halfway complications such as anastomotic ulcer, insufficient weight loss and vitamin deficiencies. I emphasized the importance of close follow-up, adherence to instructions and good communication. So far he has proven to be an excellent communicator and very compliant with all our directions accomplishing a great weight loss. I believe that he is an excellent candidate and he is ready. 2. Preop prescriptions were provided and explained the purpose of each one. Need to be purchased preop. Start Pantoprazole now as you get it from the pharmacy, 1 pill per day. Sucralfate and Zofran are for after surgery as needed. 3. Bowel prep: please do 7 packets ?of Miralax mixing each one with a an 8oz glass of water, crystal light, gatorade zero, or propel ?on 07/15/23 and the same amount on 07/16/23. Continue the protein shakes during? the bowel prep. 4. Needs to purchase 1oz medicine cups . 5. Needs to purchase Children's liquid Tylenol for postop pain control. 6. Avoid aspirin, motrin, Advil, Aleve, Ibuprofen, Naproxyn. Tylenol is OK. 7. She needs to purchase the Celebrate 4:1 protein shakes from the hospital's gift shop. 8. Will do basic preop blood work-up any day between 07/12/23 and Sunday07/13/23 fasting for 12 hours and is scheduled to see the Anesthesiologist prior to the day of surgery. 9. Importance of adherence to postop folllow-up and recommendations was underscored and he understands that. 10. Stop food and bars as of tomorrow 07/12/23 and continue with: A) WORKING DAYS: 7 HALF Fairlife bottles at 4pm-5pm, 7pm-8pm, 10pm-11pm, 12pm- 1am, 3am-4am and 6am-7am B) OFF DAYS: 7 HALF Fairlife bottles at 9am-10am, 11am-12pm, 1pm-2pm, 3pm-4pm, 5pm-6pm, 7pm-8pm and 9pm-10pm 11. No soups, broths or V8 12. The patient's?medical?history has been reviewed and they are considered low risk for post op DVT and therefore DVT prophylaxis is not considered necessary. Travel after surgery was reviewed. The patient has not disclosed any travel plans during the first 30 days after surgery and they have been advised that within the first 30 days after surgery any bus, plane, train or car travel over 2 hours in duration is contraindicated due to the possibility of developing blood clots from immobility. Any travel, needs to include periods of ambulation of 10 minutes in duration every 2 hours.? Patient was instructed to discuss any plans for travel during this period with their bariatric surgeon.? 13. Please take at the day of surgery the following medications: NONE 14. Absolutely no smoking or vaping, or marijuana until the surgery and for at least the first 4 weeks. Only nicotine patches are allowed. 15. Send me weight measurements tomorrow 07/12/23 and then on Sunday07/17/23 the day of surgery before you go to the hospital. 16. Avoid any steroids by mouth for any reason. Let me know if someone prescribes them to you (2) SAVANNAH (obstructive sleep apnea): Code(s): G47.33 - Obstructive sleep apnea (adult) (pediatric) Orders: Orders TSH reflex Free T4 Today E66.01 - Morbid (severe) obesity due to excess calories, E78.5 - Hyperlipidemia, unspecified, G47.33 - Obstructive sleep apnea (adult) (pediatric) C Reactive Protein Today E66.01 - Morbid (severe) obesity due to excess calories, E78.5 - Hyperlipidemia, unspecified, G47.33 - Obstructive sleep apnea (adult) (pediatric) Lipid Panel Today E66.01 - Morbid (severe) obesity due to excess calories, E78.5 - Hyperlipidemia, unspecified, G47.33 - Obstructive sleep apnea (adult) (pediatric) Comprehensive Met. Panel Today E66.01 - Morbid (severe) obesity due to excess calories, E78.5 - Hyperlipidemia, unspecified, G47.33 - Obstructive sleep apnea (adult) (pediatric) Prothrombin Time INR Today E66.01 - Morbid (severe) obesity due to excess calories, E78.5 - Hyperlipidemia, unspecified, G47.33 - Obstructive sleep apnea (adult) (pediatric) Type and Screen Today E66.01 - Morbid (severe) obesity due to excess calories, E78.5 - Hyperlipidemia, unspecified, G47.33 - Obstructive sleep apnea (adult) (pediatric) Partial Thromboplastin Time Today E66.01 - Morbid (severe) obesity due to excess calories, E78.5 - Hyperlipidemia, unspecified, G47.33 - Obstructive sleep apnea (adult) (pediatric) Hemoglobin A1c Today E66.01 - Morbid (severe) obesity due to excess calories, E78.5 - Hyperlipidemia, unspecified, G47.33 - Obstructive sleep apnea (adult) (pediatric) Complete Blood Count Auto Diff Today E66.01 - Morbid (severe) obesity due to excess calories, E78.5 - Hyperlipidemia, unspecified, G47.33 - Obstructive sleep apnea (adult) (pediatric) Insulin Today E66.01 - Morbid (severe) obesity due to excess calories, E78.5 - Hyperlipidemia, unspecified, G47.33 - Obstructive sleep apnea (adult) (pediatric) Medications: New ondansetron Only take one every 12 hours as needed if you have nausea 4 mg PO Q12H 20 tabs 0RF nausea and vomiting R11.0 - Nausea polyethylene glycol 3350 (Miralax) Mix each packet with 8oz of water, Crystal light, or Gatorade zero, or Propel and do 7 packets on 07/15/23 and another 7 packets on 07/16/23 17 grams PO DAILY 14 ea 0RF Z01.818 - Encounter for other preprocedural examination pantoprazole 40 mg PO DAILY 30 tabs 2RF K21.9 - Gastro-esophageal reflux disease without esophagitis sucralfate 10 mL PO BID 400 mL 2RF K21.9 - Gastro-esophageal reflux disease without esophagitis Telehealth Telehealth Location of provider rendering services: practice address Location of patient: address on file Patient Identification confirmed using: Name, : Yes Telehealth method: voice only Patient verbally consented to treatment: Yes Patient verbally consented to billing insurance company: Yes Patient informed of any privacy concerns related to visit: Yes Minutes spent on Phone/Video with Pt.: 30 Coding Level of Care Code Tele Est Pt Level 4 (72548) Diagnoses Morbid obesity E66.01 SAVANNAH (obstructive sleep apnea) G47.33 Time Spent (min) 30
== END 2023-07-11 14:01 | disposition home or self-care (01) ==
LOC: HO.HBS 08:17
PROVIDERS: Visit Provider Surgery
DX: E66.01 Morbid (severe) obesity due to excess calories (principal); G47.33 Obstructive sleep apnea (adult) (pediatric)
CPT/HCPCS: 99214

== ENCOUNTER → 2023-07-11 08:17 | Outpatient (BNVA) | payer OTHER, SELFPAY | PROVIDERS: Visit Provider Surgery ==

== ENCOUNTER 2023-07-13 14:04 | Outpatient (REF) | payer OTHER, SELFPAY ==
[2023-07-13 14:24] LABS: MANUAL DIFF FLAG NO
[2023-07-13 15:24] LABS: Basophils Percent Auto 0.4 % (0-2); Eosinophils Absolute Auto 0.1 X10*3/uL (0.0-0.4); Eosinophils Percent Auto 1.4 % (0-4); Hematocrit 43.3 % (42.0-52.0); Imm Gran Abs Auto 0.02 X10*3/uL (0.00-0.03); Imm Gran Pct Auto 0.3 % (0.0-0.4); Lymphocytes Percent Auto 26.7 % (20-40); Mean Corpuscular HGB Conc 32.3 g/dl (31.0-36.0); Mean Corpuscular Hemoglobin 27.8 pg (27.0-33.0); Mean Corpuscular Volume 85.9 fL (80.0-98.0); Monocytes Absolute Auto 0.5 X10*3/uL (0.1-1.2); Monocytes Percent Auto 6.3 % (2-11); Neutrophils Absolute Auto 4.9 x10*3/uL (2.0-8.3); Neutrophils Percent Auto 64.9 % (45-73); Platelet Count 383 X10*3/uL (160-400); Red Blood Count 5.04 X10*6/uL (4.60-5.80); Red Cell Distribution Width 12.9 % (11.0-16.0); White Blood Count 7.6 X10*3/uL (4.8-10.8)
[2023-07-13 15:34] LABS: Prothrombin Time 11.9 SEC (11.1-13.3)
[2023-07-13 15:37] LABS: Partial Thromboplastin Time 31.9 SEC (26.0-36.4)
[2023-07-13 15:41] LABS: Estimated Average Glucose 103 mg/dL; Hemoglobin A1c % 5.2 % (<6.0)
[2023-07-13 15:53] LABS: Alanine Aminotransferase 16 U/L (0-40); Albumin Level 4.2 g/dL (3.5-5.0); Alkaline Phosphatase 86 U/L (39-117); Anion Gap 10 (12-20); Aspartate Amino Transferase 17 U/L (5-37); Bilirubin Total 0.8 mg/dL (0.0-1.0); Blood Urea Nitrogen 16 mg/dL (9-16); C Reactive Protein 0.38 mg/dL (< or = 0.50); Calcium 9.4 mg/dL (8.4-10.2); Carbon Dioxide 29 mmol/L (22-29); Chloride 105 mmol/L (96-108); Cholesterol 182 mg/dL (<200); Estimated Glomerular Filt Rate > 60; Glucose Random 87 mg/dL (60-115); HDL Cholesterol 35 mg/dL (>40); LDL Cholesterol Calculated 121 mg/dL (<100); Sodium 140 mmol/L (135-145); Total Protein 7.8 g/dL (6.5-8.0); Triglycerides 132 mg/dL (<150)
[2023-07-13 16:08] LABS: Insulin 11 uU/mL (2-29); TSH reflex Free T4 1.28 uIU/mL (0.32-4.0)
== END 2023-07-13 14:05 | disposition home or self-care (01) ==
LOC: HO.LAB 14:04
PROVIDERS: Visit Provider Surgery
DX: E66.01 Morbid (severe) obesity due to excess calories (principal); G47.33 Obstructive sleep apnea (adult) (pediatric); E78.5 Hyperlipidemia, unspecified
CPT/HCPCS: 36415; 80053; 80061; 83036; 83525; 84443; 85025; 85610; 85730; 86140

== ENCOUNTER 2023-07-17 05:53 | Day surgery (SDC) | payer OTHER, SELFPAY ==
[2023-07-11 14:52] VITALS: BMI 42.1
--- NOTE | 2023-07-15 14:38 | P.HPSUR_ITS ---
Pre-Procedural Eval Section A Date of Service: 07/15/23 The patient is an INPATIENT: No The History & Physical has been completed within 30 days and I have reviewed it.: Yes Section B Chief Complaint: Morbid (severe) obesity due to excess calories Relevant Family History (Specify if Yes): No Relevant Social History: None Present Medications: None Medical History: No relevant PMH History of Previous Operations: No relevant previous surgery Allergies: Allergies Allergy/AdvReac Type Severity Reaction Status Date / Time No Known Allergies Allergy Verified 07/11/23 14:52 Review of Systems Sugical H&P ROS: Negative: Constitution, Cardiovascular, Respiratory, Neurological, Psychiatric, Hem-Onc, Allergic/Immunologic, Gastrointestinal, Genitourinary, Musculoskeletal, Integumentary, Endocrine and Eyes/Ears/Nos e/Throat Exam Surgical H&P Exam: Normal: HEENT, Normal: Heart, Normal: Lungs, Normal: Extremities, Normal: Abdomen, Normal: Skin and Normal: Neurological Plan Diagnosis/Plan: Unchanged I have reviewed the history and physical and performed a pertinent physical examination on my patient. No changes have occurred unless specified. Time Spent With Patient Time: Total time managing care of this patient today ____ minutes.
--- NOTE | 2023-07-16 09:55 | P.CONAN_ITS ---
Documented by User: Dunia Wallace NP 07/16/23 09:56 HPI - Anesthesia Eval Consult details Narrative: 38yo M for Gastrectomy Sleeve-EGD, possible diaphragmatic hernia, possible ventral hernia, possible open PMFSH Active Problems Active Problems: All Active Problems (Updated 07/11/23 @ 14:56 by Fiona Frias RN) Preprocedural examination (Acute) Hyperlipidemia (Acute) SAVANNAH (obstructive sleep apnea) (Acute) Morbid obesity (Acute) Back pain (Acute) Knee pain (Acute) Past Medical History Medical History Tooth loose Postoperative nausea Back pain Knee pain Surgical History Surgical History Hx of oral surgery Hx of bladder endoscopy Hx of cholecystectomy Social History Social History Household Members: Friend(s) Housing: Apartment Are you a primary care management assistant to a significant other at home: No Do you presently have visiting nurse or other home services: No Alcohol intake: current Alcohol intake frequency: holidays/special occasions only Patient Tobacco Use Status: Never used Tobacco Use of substances other than those prescribed or required for medical reasons: Yes Substance Use Type: Marijuana Substance Use Frequency: Daily Have you been hit, kicked, punched, or otherwise hurt by someone within the past year? If so, by whom?: No Are you DNR?: No Advance Directives: No Advance Directives Information Provided: Yes Advance Directives on File: No Recently lost weight without trying: No Nutrition Risks: No Nutritional Risk Poor oral hygiene: No Meds Allergies Allergy/AdvReac Type Severity Reaction Status Date / Time No Known Allergies Allergy Verified 07/11/23 14:52 Home Medications Medication Instructions Recorded Confirmed Last Taken Type JXT5 supplement PO BID 03/29/23 07/11/23 Unknown History Exam Height,Weight and Vital Signs: Height 5 ft 9 in Weight 129.274 kg Pertinent Lab Results Pertinent Lab Results: Laboratory Tests 07/13/23 14:18 Blood Type O Positive Antibody Screen NEGATIVE Laboratory Tests 07/13/23 14:22 WBC 7.6 Hgb 14.0 Hct 43.3 Plt Count 383 Sodium 140 Potassium 4.0 Chloride 105 Carbon Dioxide 29 BUN 16 Creatinine 1.00 Narrative Narrative: EKG 03/2023 Vent. Rate : 062 BPM Atrial Rate : 062 BPM P-R Int : 148 ms QRS Dur : 080 ms QT Int : 410 ms P-R-T Axes : 025 -10 009 degrees QTc Int : 416 ms Normal sinus rhythm Normal ECG When compared with ECG of 19-FEB-2017 10:58, No significant changes seen Assessment and Plan Assessment Anesthesia Assessment: Chart Reviewed Documented by User: Sowmya Ashley MD 07/17/23 09:04 COUNT INCLUDES THE [facility] Active Problems Active Problems: All Active Problems (Updated 07/17/23 @ 07:10 by Sowmya Ashley MD) Preprocedural examination (Acute) Hyperlipidemia (Acute) SAVANNAH (obstructive sleep apnea). Never used CPAP. Patient had sleep study a few days ago which was negative for SAVANNAH Morbid obesity (Acute)BMI 41.3 Back pain (Acute) Knee pain (Acute) Loose tooth top front- quite loose-patient aware of possibility of dislodgement of tooth with intubation and EGD Past Medical History Medical History Tooth loose Postoperative nausea Back pain Knee pain Family History Family history of problems with anesthesia: No Surgical History Surgical History Hx of oral surgery Hx of bladder endoscopy Hx of cholecystectomy History of Problems with Anesthesia: Yes (PONV with gall bladder surgery) Social History Social History Household Members: Friend(s) Housing: Apartment Are you a primary care management assistant to a significant other at home: No Do you presently have visiting nurse or other home services: No Alcohol intake: current Alcohol intake frequency: holidays/special occasions only Patient Tobacco Use Status: Never used Tobacco Use of substances other than those prescribed or required for medical reasons: Yes Substance Use Type: Marijuana Substance Use Frequency: Daily Have you been hit, kicked, punched, or otherwise hurt by someone within the past year? If so, by whom?: No Are you DNR?: No Advance Directives: No Advance Directives Information Provided: Yes Advance Directives on File: No Recently lost weight without trying: No Nutrition Risks: No Nutritional Risk Poor oral hygiene: No Meds Allergies Allergy/AdvReac Type Severity Reaction Status Date / Time No Known Allergies Allergy Verified 07/11/23 14:52 Home Medications Medication Instructions Recorded Confirmed Last Taken Type JXT5 supplement PO BID 03/29/23 07/11/23 Unknown History Exam Height,Weight and Vital Signs: Height 5 ft 9 in Weight 129.274 kg Vital Signs Temp Pulse Resp BP Pulse Ox O2 Del Method 07/17/23 06:23 97 F 67 20 127/67 98 Room Air Airway Mallampati Class: II (Loose top incisor) TM Dist: >3cm Neck ROM: Full Loose/Missing/Broken Teeth: Yes (Denies broken teeth) Heart: RRR Lungs: CTAB. Diminished Assessment and Plan Assessment Anesthesia Assessment: Anesthesia Plan Discussed Final Anesthetic Review Family History of Problems with Anesthesia: No History of Problems with Anesthesia: Yes (PONV with gall bladder surgery) NPO: Yes ASA Class: III Final Preanesthetic Review: No Changes in Pt Med Stat, Meds/Allgs Chart Reviewed, Consent Obtained/Reviewed and Anes Risks/Benef Reviewed Patient Risk: Intermediate Procedure Risk: Intermediate Assessment/Block/Sedation in SS: Assess/Block/Sedation-SS Anesthetic Plan Anesthetic Plan: GA Disposition: Standard PACU and Inp. Admit - Standard Bed
[2023-07-17] VITALS (19 sets, daily range): BP systolic 126–168; BP diastolic 60–93; PULSE 67–94; RESP 16–21; TEMP 36.1–36.7; O2SAT 95–100; BMI 41.3
[2023-07-17] MEDS: Aprepitant 32 MG/4.4 ML VIAL IVPUSH (06:47)
[2023-07-17] MEDS: Lactated Ringers 1,000 ML 999 ML IV (06:47)
--- NOTE | 2023-07-17 07:32 | P.BOP_ITS ---
Brief Operative Note Date of Service: 07/17/23 Pre-op diagnosis: Morbid obesity with comorbidities (see below) Post-op diagnosis: same (& abdominal adhesions) Procedure: INITIAL PATIENT BMI ON PRESENTATION AT OUR OFFICE: 46.8 kg/m2 LAST BMI BEFORE SURGERY: 41.5 kg/m2 COMORBIDITIES: hyperlipidemia, DJD, GERD ?The patient presented to the Weight Management Program with significant obesity that was negatively impacting the patient's comorbidities as listed above.? The program is a phased program with a special focus on preoperative medical weight management to promote substantial weight loss and prepare the patients for the second phase of the program: bariatric surgery. The patient participated in an intensive weekly lifestyle ?intervention and exercise program during which the patient ?has lost between the initial office visit and the last preoperative visit 38 lbs, or 11.93% of initial actual body weight. It was deemed appropriate for the patient to now have bariatric surgery. In light of the current Covid-19 pandemic and the well documented strong association of obesity and increased risk of worse outcomes if infected with Covid-19 (REFERENCES: https://pubmed.ncbi.nlm.nih.gov/09717742/ ,? https://pubmed.ncbi.nlm.nih.gov/86910942/ ), any delay in undergoing bariatric surgery may lead to the patient's worsening health condition and increased?risk of more severe Covid-19 disease if infected. In addition a recent?study from [facility] published in [facility] on 08/22/2021 ([email or web address]) found that, among patients with obesity, substantial weight loss achieved with surgery was associated with improved outcomes of COVID-19 infection. The findings suggest that obesity can be a modifiable risk factor for the severity of COVID-19 infection. In addition, the patient met the BMI-criteria for bariatric surgery based on the BMI on initial presentation. The patient should not be penalized for achieving such weight loss because ?it is not sustainable long-term without surgical intervention and it was achieved in preparation for bariatric surgery ?under my direction and based on my published research ([email or web address]).[email or web address] and? https://www.soard.org/article/[email or web address](06)66639-X/pdf ) ?that a 10% preoperative weight loss improves long-term weight loss after surgery and reduces perioperative complications.? Insurance carriers such as [facility] have endorsed my recommendations ?and have included in their policies criteria to inc lude a 10% preoperative weight loss requirement. PROCEDURE: Esophago-gastroscopy, laparoscopic lysis of adhesions, laparoscopic sleeve gastrectomy and laparoscopic gastropexy INDICATIONS: This is a 38 year-old male who was electively scheduled for laparoscopic, possibly open sleeve gastrectomy. The risks and complications of the procedure were discussed with the patient in advance, particularly the possibility of ; pulmonary embolism; staple line leak; bleeding; GERD; cardiac, pulmonary, or renal complications; as well as long-term problems such as insufficient weight loss, vitamin deficiency, strictures, or ulcers. The patient understood all the risks, and was in agreement to proceed with surgery. DESCRIPTION OF PROCEDURE: After informed consent was obtained from the patient, the patient was given preoperative antibiotics, and was transferred to the operating room. After successful induction of general anesthesia, pneumatic compression devices were placed on both lower extremities. An upper endoscopy was performed next. The oropharynx and esophagus appeared to be within normal limits. There was no diaphragmatic hernia present consistent with the findings of the preoperative upper GI. The stomach was entered. Then after all fluid and air were suctioned and the stomach was fully decompressed, the scope was withdrawn and secured in the mid esophagus. The patient was then prepped and draped in the usual sterile manner, and abdominal access was established at the right upper quadrant with the Shala technique. A 12 mm blunt port was inserted, and the abdomen was insufflated with CO2 to a pressure of 15 mmHg. Under direct visualization, additional ports were placed, specifically two 5 mm Versi-step ports to the left upper quadrant, and a 5 mm Versi-Step port to the right upper quadrant. 1% lidocaine plain was used to infiltrate all port sites as well as all fascia defects. Following that, the patient was placed in a steep reverse Trendelenburg position. An additional 5 mm port was placed to the right flank for the Mediflex retractor that was used to retract the left lobe of the liver. The gastro-esophageal fat pad was opened with the ultrasonic device (Th underbeat, Olympus) and the anterior esophagus and hiatus were exposed. The angle of His was opened with the ultrasonic device the fundus of the stomach from any diaphragmatic and splenic attachments. I then opened the gastrocolic ligament between the transverse colon and the greater curvature of the stomach with the ultrasonic device to enter the lesser sac and facilitate the ligation of the short gastric vessels. I started at a mid-point along the greater curvature and using the Thunderbeat, all short gastric vessels were divided all the way to the angle of His until the left candy was completely dissected at its entirety. I then divided the gastro-colic ligament distally to a distance of about 3-4 cm proximal to the pylorus. There were extensive congenital adhesions between the pancreas and posterior gastric wall. Those were lysed completely with the ultrasonic device. Adhesiolysis took approximately 45 min to complete. The stomach was then divided transversely with three Endo DAVID-45 purple and three DAVID-60 articulating purple loads using the [employer] stapler and loads. Every effort was made that the gastric sleeve had a tubular shape and an even caliber throughout. Once the sleeve resection was completed, the staple line of the gastric sleeve was reinforced with Hemoclips. The resected stomach was retrieved without difficulty from the Shala port. A gastropexy was then performed in order to prevent postoperative GERD and partial gastric volvulus. Several interrupted 2.0 Surgidac sutures were placed between the sleeve's staple line and the previously divided greater omentum and gastro-colic ligament using the Endo-Stitch device. ?An upper endoscopy was performed. There was no narrowing at the GE junction. The scope was easily advanced all the way to the pylorus which was clearly visualized. There was no narrowing anywhere and the sleeve's caliber was even throughout. The sleeve's staple line was inspected and there was no evidence of ischemia, bleeding or dehiscence. At that point the gastroscope was withdrawn from the patient?s mouth while we were decompressing the bowel and the stomach from any remaining air. I looked into the lesser sac to see how the sleeve was situating and it was situating well. There was no bleeding from the staple line, spleen, or short gastric vessels. The Mediflex retractor was removed, and the undersurface of the liver was inspected and there was no bleeding. The patient was placed in supine position. I closed the fascial defect of the 12 mm port site with a figure of eight #1 Polysorb suture. Then 30cc Ropivacaine plain with 10 mg of Dexamethasone were used to infiltrate the fascial closure as well as all skin incisions. A total of 5ml Zynrelef was applied in the Shala wound. At this point, the abdomen was deflated, all ports were removed under direct vision, and no bleeding was noted from any of the port sites. The skin incisions were irrigated with saline and were closed with 4-0 absorbable monofilament sutures. Steri-Strips and OpSites were used to cover all incisions. The patient was extubated and was transferred in stable condition to the recovery room for further care. I was present and performed all keller parts of the procedure. Mr. Tian was the home health assistant. There were no residents to assist with this case. Narciso Smallwood MD, PhD, FACS Surgeon: Damion Smallwood MD Anesthesia: GETA, local and other (TAP block and 5ml Zynrelef) Was an Storage Garage Attendant used for this Procedure?: No Storage Garage Attendant: Vidal Tian Estimated blood loss (mL): 10 IV fluids (mL): 2,000 Urine output (mL): 0 (No Seo to record output) Pathology: other (Stomach) Condition: stable Disposition: PACU
--- NOTE | 2023-07-17 07:36 | P.PNGS_ITS ---
Subjective Subjective Date of Service: 07/18/23 Interval history: Feels well. Mild incisional pain. He is tolerating phase 1 bariatric diet Physical Exam 2 Vital Signs: Vital Signs: Last Vital Signs Temp 97 F 07/17/23 06:23 Pulse 67 07/17/23 06:23 Resp 20 07/17/23 06:23 BP 127/67 07/17/23 06:23 Pulse Ox 98 07/17/23 06:23 O2 Del Method Room Air 07/17/23 06:23 BMI result Body Mass Index 41.3 GI: Inspection: Yes normal to inspection, Yes incision (clean, dry and intact) and Yes obesity Palpation (GI): Soft to palpation Extrem: Right lower extremity: normal to inspection (no calf tenderness) L eft lower extremity: normal to inspection (no calf tenderness) Objective Data Active Medications Lactated Ringer's (Lr) 1,000 mls @ 999 mls/hr IV .Q1H1M JASON Stop: 07/17/23 08:15 Last Admin: 07/17/23 06:47 Dose: 999 mls/hr Documented By: LEFTY Lactated Ringer's (Lr) 1,000 mls @ 100 mls/hr IVCONT .Q10H JASON Labs 07/18/23 07:03 07/18/23 07:03 Procedures Date of Service Date of Service: 07/18/23 Progress Note: A&P Assessment and plan (1) Morbid obesity: Status: Acute Assessment and Plan: s/p laparoscopic sleeve gastrectomy, lysis of adhesions and gastropexy Doing well Will check am labs and if OK the patient will be discharged home (2) Hyperlipidemia: Status: Acute (3) Back pain: Status: Acute (4) Knee pain: Status: Acute (5) Congenital intra-abdominal adhesions: Status: Acute Time Spent With Patient Time: Total time managing care of this patient today ____ minutes. Quality Stroke Does the patient have a stroke diagnosis?: No VTE Prior VTE?: No VTE Risk Level:: Surgical - moderate VTE Device Contraindication: N/A - Device Ordered VTE Drug Contraindication: Treatment Not Indicated
--- NOTE | 2023-07-17 10:18 | P.DS_ITS ---
DS: Providers Provider Date of Service: 07/18/23 Primary care physician: Unknown Physician DS: Diagnosis Discharge Diagnosis (1) Morbid obesity: Status: Acute (2) Hyperlipidemia: Status: Acute (3) Back pain: Status: Acute (4) Knee pain: Status: Acute (5) Congenital intra-abdominal adhesions: Status: Acute DS: Summary Hospital Course Hospital Course: ADMITTING DIAGNOSIS: morbid obesity, HLD ? DISCHARGE DIAGNOSIS: same, s/p laparoscopic sleeve gastrectomy ? PAST SURGICAL HISTORY: lap CCY ? PROCEDURE: upper endoscopy, laparoscopic sleeve gastrectomy ? DISCHARGE SUMMARY: ? History of Present Illness: ? The patient is a?38 year-old male with a BMI of?47 kg/m2 and associated co- morbidities as described above. The patient had extensive work-up,lost?34.2 lbs preoperatively and was electively scheduled for laparoscopic, possible open sleeve gastrectomy and gastropexy. Risks and complications of the surgery were discussed with the patient in advance, particularly the possibility of , pulmonary embolism, anastomotic leak, bleeding, bowel injury, GERD, cardiac, renal or pulmonary complications. The patient understood all the risks and was in agreement with the surgical plan. ? Hospital Course: ? The patient underwent an uneventful laparoscopic sleeve gastrectomy with gastropexy on the day of admission. Postoperatively, the patient was transferred to the surgical floor. The patient received IV Acetaminophen and IV dilaudid for pain control. Patient was started on bariatric phase 1 diet POD #0. On postoperative day one, the patient was feeling well without nausea, vomiting, fevers, or tachycardia. The patient had some mild incisional pain and the abdomen was soft. ? On the morning of postoperative day one, the patient was continued on 1 ounce of water or ice every half hour. During the day, the patient did fairly well, having some incisional pain, but able to ambulate adequately and to tolerate liquids well. ? Since the patient is doing well, we decided that the patient was ready to be discharged. The patient was given instructions to follow-up with me next week and to call my office for any fever over 101, persistent abdominal pain, nausea, vomiting, GERD, symptoms of DVT such as calf tenderness, or leg swelling, or pulmonary embolism such as chest pain or shortness of breath. The patient was also instructed to drink 40-60 ounces of liquids per day using the 1-ounce cups. The patient had been given prescriptions for Tylenol for pain, Zofran prn for nausea, and pantoprazole and carafate previously. The patient was encouraged to ambulate and use the incentive spirometer. The patient was allowed to shower, but no baths, and encouraged to stay active at home. All of these instructions were given to the patient personally. All questions were answered and the patient understood all instructions, the instructions were also given to the patient in print. Time Attestation Discharge coordination time: Less than 30 minutes Quality: Safe Use of Opioids Does Pt have an Active Cancer Diagnosis on the Problem List?: No Quality: Stroke Does the patient have a stroke diagnosis?: No Physical Exam Vital Signs: Vital Signs: Last Vital Signs Temp 97 F 07/17/23 06:23 Pulse 67 07/17/23 06:23 Resp 20 07/17/23 06:23 BP 127/67 07/17/23 06:23 Pulse Ox 98 07/17/23 06:23 O2 Del Method Room Air 07/17/23 06:23 BMI result Body Mass Index 41.3 DS: Data Data Completed and Pending Pending studies at discharge: Pending at discharge 07/17/23 09:19 Surgical [PTH] Routine Discharge Plan Discharge Patient Disposition: Home, Self-Care Referrals: Physician,Unknown J [Primary Care Provider] - 1 Week Discharge Medications: Continued pantoprazole 40 mg tablet,delayed release (DR/EC) 40 mg PO DAILY Qty: 30 2RF sucralfate 100 mg/mL suspension 10 ml PO BID Qty: 400 2RF Patient Comments: POSTOP MED ondansetron 4 mg tablet,disintegrating 4 mg PO Q12H Qty: 20 0RF Rx Instructions: Only take one every 12 hours as needed if you have nausea Discontinued cholecalciferol (vitamin D3) 125 mcg (5,000 unit) capsule 125 mcg PO DAILY PRN (Reason: low vit D) 90 Days Qty: 90 1RF thiamine HCl (vitamin B1) 100 mg tablet 100 mg PO DAILY 90 Days Qty: 90 1RF JXT5 supplement PO BID Patient Comments: supplement for testosterone, joint pain, prostate Discharge Orders: Discharge Order (Routine); Ordered 07/18/23 Ordered By: Damion Smallwood Activity on Discharge: No heavy lifting Activity Restrictions/Additional Instructions: No tub baths, sex or returning to work until discussed at first post op appointment. No exercise, alcohol, tobacco or illegal drug use. Continue to use incentive spirometer hourly while awake. Walk in home for 5- 10 minutes every 2 hours during the first week. Follow all instructions in the bariatric handbook and call with any questions.Discharge Instructions 1. Please call your doctor or come back to the emergency room should any new symptoms arise. 2. You will receive a courtesy call from [facility] 24-48 hours after discharge. 3. Activity: abstain from alcohol, practice limited stair climbing, no bending, no driving, no exercise, no illicit substances, no lifting, no sex, no tub bath, no work. 4. Diet: continue as discussed with Dr. Smallwood. 5. Dressing Change/Wound Care: Your incision is covered by clear bandages and guaze underneath. If the area is tender, you may apply an ice pack for short intervals (no more than 20 minutes on, followed by at least 20 minutes off). Do not apply heat. Do not use creams, lotions, or topical antibiotics unless instructed to do so by your surgeon. These can cause infection or allergic reaction. 6. Call your doctor if: - Your temperature exceeds 101.5 F - You experience excessive pain or swelling - You have an unexpected reaction to medication - You have excessive bleeding - You experience continued vomiting/nausea - Your incision begins to separate - Your incision shows signs of infection such as increased redness, swelling, excessive pain, heat, or drainage (light blood or clear fluid is normal) 7. General instructions: No lifting greater than 5 lbs for 1 week and not more than 20lbs the next 3?weeks. No driving until seen at the office in 5-7 days after surgery. If you do not move your bowels in the next 2 days, please tell?Dr. Smallwood. Please walk around your home every hour or two to prevent blood clots from forming in your legs. You do not need to wake from sleeping to walk. Please sleep in a bed or couch to prevent kinking at the hips and knees. Please take your incentive spirometer (your lung industry operations investigator) home with you and use it for the next few days to prevent pneumonia. You may shower, no hot tubs, baths or swimming pools.?Please follow the post op diet instructions you are?given by Dr Smallwood? and text me daily at 5-6pm for an update.?If you have any issues or concerns or questions please communicate this to him via text.? The Celebrate shakes have all of the bariatric vitamins you need if you consume these shakes. If you are drinking other protein shakes, you will need to purchase the Celebrate multivitamins and calcium that are available in the hospital gift shop on the first floor of the main hospital.??Do not take anything without first discussing with Dr Smallwood. Please make sure you are consuming at least 40 ounces of fluids per day starting the?day AFTER your discharge from the hospital. Always drink 1-2 ml per minute using the 5ml?syringe. If you drink faster you may experience?bloating,?gas pain, burping, nausea or heartburn. In that case please slow down your pace and use the syringe to?understand better the?proper?pace and volume of drinking. Do not hesitate to contact the office with any questions at . The patient's medical history has been reviewed and they are considered low risk for post op DVT and therefore DVT prophylaxis is not considered necessary. Travel after surgery was reviewed. The patient has not disclosed any travel plans during the first 30 days after surgery and they have been advised that within the first 30 days after surgery any bus, plane, train or car travel over 2 hours in duration is contraindicated due to the possibility of developing blood clots from immobility. Any travel, needs to include periods of ambulation of 10 minutes in duration every 2 hours.? The patient was instructed to discuss any plans for travel during this period with their bariatric surgeon. Discharge Date/Time: 07/18/23 09:34
[2023-07-17 10:42] LABS: Hematocrit 42.7 % (42.0-52.0); Hemoglobin 14.1 g/dl (14.0-18.0)
[2023-07-17] MEDS: HYDROmorphone HCl 0.5 MG/0.5 ML SYRINGE 0.25 MG IVPUSH ×5 (10:43→23:31)
[2023-07-17 10:52] LABS: Anion Gap 14 (12-20); Blood Urea Nitrogen 14 mg/dL (9-16); Calcium 9.1 mg/dL (8.4-10.2); Carbon Dioxide 23 mmol/L (22-29); Chloride 102 mmol/L (96-108); Creatinine Clr Calc Pharmacy 109.4; Estimated Glomerular Filt Rate > 60; Glucose Random 105 mg/dL (60-115); Potassium 3.7 mmol/L (3.3-5.1); Sodium 135 mmol/L (135-145)
[2023-07-17] MEDS: ceFAZolin Sodium/Dextrose,Iso 2 GM/50 ML PIGGYBACK IV (13:25)
[2023-07-17] MEDS: Lactated Ringers 1,000 ML 100 ML IVCONT (13:28)
[2023-07-17] MEDS: Acetaminophen 1,000 MG/100 ML PIGGYBACK 16.7 MG IV ×2 (13:57→19:28)
[2023-07-17] MEDS: 0.9 % Sodium Chloride Flush 3 ML SYRINGE IVFLUSH (19:30)
[2023-07-17] MEDS: Famotidine/PF 20 MG/2 ML VIAL IVPUSH (19:30)
[2023-07-17] MEDS: Lactated Ringers 1,000 ML 125 ML IVCONT (21:25)
[2023-07-18] MEDS: Acetaminophen 1,000 MG/100 ML PIGGYBACK 16.7 MG IV ×2 (01:24→07:46)
[2023-07-18 03:43] VITALS: BP 134/67; PULSE 88; RESP 18; TEMP 36.2; O2SAT 98
[2023-07-18] MEDS: Lactated Ringers 1,000 ML 125 ML IVCONT (05:35)
[2023-07-18 07:07] VITALS: BP 135/63; PULSE 56; RESP 20; TEMP 36.7; O2SAT 97
[2023-07-18] MEDS: Famotidine/PF 20 MG/2 ML VIAL IVPUSH (07:46)
[2023-07-18 07:50] LABS: MANUAL DIFF FLAG NO
[2023-07-18 07:54] LABS: Basophils Percent Auto 0.1 % (0-2); Eosinophils Percent Auto 0.1 % (0-4); Hematocrit 37.8 % (42.0-52.0); Hemoglobin 12.7 g/dl (14.0-18.0); Imm Gran Abs Auto 0.04 X10*3/uL (0.00-0.03); Imm Gran Pct Auto 0.4 % (0.0-0.4); Lymphocytes Absolute Auto 1.4 X10*3/uL (1.2-4.9); Lymphocytes Percent Auto 12.9 % (20-40); Mean Corpuscular HGB Conc 33.6 g/dl (31.0-36.0); Mean Corpuscular Hemoglobin 28.7 pg (27.0-33.0); Mean Corpuscular Volume 85.5 fL (80.0-98.0); Mean Platelet Volume 9.2 fL (9.4-12.4); Monocytes Absolute Auto 0.9 X10*3/uL (0.1-1.2); Monocytes Percent Auto 7.9 % (2-11); Neutrophils Absolute Auto 8.7 x10*3/uL (2.0-8.3); Neutrophils Percent Auto 78.6 % (45-73); Platelet Count 368 X10*3/uL (160-400); Red Blood Count 4.42 X10*6/uL (4.60-5.80); Red Cell Distribution Width 12.7 % (11.0-16.0); White Blood Count 11.1 X10*3/uL (4.8-10.8)
[2023-07-18 08:06] LABS: Anion Gap 13 (12-20); Blood Urea Nitrogen 9 mg/dL (9-16); Calcium 9.2 mg/dL (8.4-10.2); Carbon Dioxide 22 mmol/L (22-29); Chloride 104 mmol/L (96-108); Creatinine Clr Calc Pharmacy 146.3; Estimated Glomerular Filt Rate > 60; Glucose Random 96 mg/dL (60-115); Potassium 4.1 mmol/L (3.3-5.1); Sodium 135 mmol/L (135-145)
--- NOTE | 2023-07-18 09:36 | HO.POSTANES ---
Post Anesthesia Evaluation Post Anesthesia Evaluation Date of Service: 07/17/23 Vital Signs: Vital Signs Temp Pulse Resp BP Pulse Ox O2 Del Method 07/18/23 07:07 98.1 F 56 20 135/63 97 Room Air 07/18/23 03:43 97.1 F 88 18 134/67 98 Room Air 07/17/23 23:21 98.0 F 78 18 138/72 97 Room Air Anesthesia: General Endotracheal-GETA Mental Status: Awake Pain Control: Satisfactory Nausea/Vomiting: None Hydration: Adequate Anesthesia-Related Issues: No Anes. Related Issues
== END 2023-07-18 09:34 | disposition home or self-care (01) ==
LOC: HO.SSS 10:20 → HO.S3 10:28
PROVIDERS: Physician Assistant Surgical; Visit Provider Surgery
PROC: (CPT 43845; principal; 2023-07-17 07:30)
DX: E66.01 Morbid (severe) obesity due to excess calories (principal); Z68.41 Body mass index [BMI] 40.0-44.9, adult; Z91.89 Other specified personal risk factors, not elsewhere classified; E78.5 Hyperlipidemia, unspecified; K21.9 Gastro-esophageal reflux disease without esophagitis; M19.90 Unspecified osteoarthritis, unspecified site; M54.9 Dorsalgia, unspecified; M25.569 Pain in unspecified knee; G47.33 Obstructive sleep apnea (adult) (pediatric); Q43.3 Congenital malformations of intestinal fixation; K08.89 Other specified disorders of teeth and supporting structures; Z79.899 Other long term (current) drug therapy; Z90.49 Acquired absence of other specified parts of digestive tract; F12.90 Cannabis use, unspecified, uncomplicated
CPT/HCPCS: 43775; 43659; 49329; 36415; 80048; 85014; 85018; 85025; 86850; 86900; 86901; 88304; 88305; 88307; 88342; A4649; C9088; C9145; J0131; J0690; J1100; J1170; J2250; J2704; J2795; J3010; J7120

== ENCOUNTER → 2023-07-17 05:53 | Outpatient (BNV) | payer OTHER, SELFPAY | PROVIDERS: Visit Provider Surgery | DX: E66.01 Morbid (severe) obesity due to excess calories (principal); Z68.41 Body mass index [BMI] 40.0-44.9, adult | CPT/HCPCS: 43659; 43775; 99024 ==

== ENCOUNTER 2023-07-24 10:29 | Outpatient (AMB) | payer OTHER, SELFPAY ==
--- NOTE | 2023-07-24 10:57 | MHC.OFFVISWM ---
Intake VS Expanded 07/24/23 11:02 BP 143/76 H Blood Pressure Location Rt brachial Blood Pressure Position Sitting Pulse 96 Pulse Source Pulse Oximeter Temp 97.3 F Temperature Source Temporal Artery Scan Pulse Oximetry 97 Oxygen Delivery Method Room Air Height 5 ft 9 in Weight 269 lb 6.4 oz BMI 39.8 Body Fat % 37.0 Body Fat Mass 99.6 Fat Free Mass 169.6 Visceral Fat Rating 19.0 Body Water % 44.6 Body Water Mass 120.2 Muscle Mass/Score 161.2 Basal Metabolic Rate/Score 2,361 Intake Visit Reasons: (OV) 7 Days PO LSG 07/17/23 Allergies No Known Allergies Allergy (Verified 07/24/23 11:07) HPI HPI Comments History of Present Illness Details Pleasant 38-year-old male returns to the office today in follow-up from his laparoscopic sleeve gastrectomy performed on 07/17/2023. He is tolerating two celebrate 4 in 1 shakes with 1 scoop each. 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 He reports he has been communicating this with Dr. Smallwood. He is tolerating approximately 40 oz of fluids daily. Positive bowel movement, no significant abdominal pain. [facility] Medical History Tooth loose Postoperative nausea Back pain Knee pain Surgical History Hx of oral surgery Hx of bladder endoscopy Hx of cholecystectomy Social History Household Members: Significant Other Housing: Apartment Are you a primary caretaker resort to a significant other at home: No Do you presently have visiting nurse or other home services: No Alcohol intake: current Alcohol intake frequency: holidays/special occasions only Patient Tobacco Use Status: Never used Tobacco Substance Use Type: Marijuana Physical Exam Vital Signs: Last Vital Signs Temp 97.3 F 07/24/23 11:02 Pulse 96 07/24/23 11:02 BP 143/76 H 07/24/23 11:02 Pulse Ox 97 07/24/23 11:02 Oxygen Delivery Method Room Air 07/24/23 11:02 BMI result Body Mass Index 39.8 GI Inspection: Yes incision (Clean, dry, intact.) Assessment & Plan Assessment & Plan (1) S/P laparoscopic sleeve gastrectomy: Comment: 07/17/23 Code(s): Z98.84 - Bariatric surgery status Plan: POD 7 s/p LSG on 07/17/[address] Smallwood Weight loss prior to surgery was 34.2 pounds or 10.7 % TBWL. Original weight on 03/29/23 was 318.4 pounds and op weight was 284.2 pounds. Be sure to text Dr Smallwood exactly 1 week after surgery your weight from your home scale so he can adjust your meal plan. Continue meal plan until f/u w Tian in 2 weeks May shower, no submersion in bath for another week Continue abdominal binder with activity and exercise for the next 2 weeks. Exercise prior to surgery was treadmill, may resume No abdominal exercises for 6 weeks post operatively Will be emailed link to post op video for review Reminded of the pace of drinking, 2 mL per minute, 1 oz/15 min. Coding Level of Care Code Global (81493) Diagnoses S/P laparoscopic sleeve gastrectomy Z98.84
[2023-07-24 11:02] VITALS: BP 143/76; PULSE 96; TEMP 36.3; O2SAT 97; BMI 39.8
== END 2023-07-24 11:59 | disposition home or self-care (01) ==
PROVIDERS: Visit Provider Physician Assistant Surgical
DX: Z98.84 Bariatric surgery status (principal)
CPT/HCPCS: 99024

== ENCOUNTER → 2023-07-24 10:29 | Outpatient (BNVA) | payer OTHER, SELFPAY | PROVIDERS: Visit Provider Physician Assistant Surgical ==

== ENCOUNTER 2023-08-14 09:47 | Outpatient (AMB) | payer OTHER, SELFPAY ==
--- NOTE | 2023-08-14 09:51 | MHC.OFFVISWM ---
Intake VS Expanded 08/14/23 09:58 BP 134/60 Blood Pressure Location Rt brachial Blood Pressure Position Sitting Pulse 71 Pulse Source Pulse Oximeter Temp 97.7 F Temperature Source Temporal Artery Scan Pulse Oximetry 97 Oxygen Delivery Method Room Air Height 5 ft 9 in Weight 256 lb BMI 37.8 Body Fat % 33.8 Body Fat Mass 86.6 Fat Free Mass 169.8 Visceral Fat Rating 17.0 Body Water % 48.1 Body Water Mass 123.2 Muscle Mass/Score 161.4 Basal Metabolic Rate/Score 2,342 Intake Visit Reasons: (OV) PO LSG 07/17/23 Allergies No Known Allergies Allergy (Verified 08/14/23 09:53) HPI HPI Comments History of Present Illness Details This?a?38?yo male who is s/p LSG without hiatal hernia repair on?07/19/2021. Presents for 1 month post op visit. Weight today is 256.4 pounds, with a BMI of 37.9. There has been a 62 pound weight loss,(initial weight 318.4 pounds) since starting the program on 03/29/2023 reflecting a 19.4 % total body weight loss and a weight loss of 27.8 pounds since surgery (operative weight 284.2 pounds) reflecting a 9.7 % TBWL since surgery. No complaints of nausea, emesis, abdominal pain or reflux. Reports infrequent but normal bowel movements every 2-3 days and uses stool softeners regularly. He has noticed an increase in upper back pain over the last 3 weeks. 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 States that he was supposed to take the Atkins bar, but tried it once and felt to full and has not done it since. He states that he broke it into 6 pieces and had 1 piece every 20 minutes lasting approximately 2 hours. Present meal plan includes: celebrate 4 in 1, 2 scoops w 8 oz almond milk, (10-12, 2-4 when not working), (3-5 pm, 7-9 pm - working) fairlife shake RTD 30 gm, 7-9 pm drinking about 40 oz water daily Exercise routine includes: 2-3 days treadmill speed 3.2 incline 5-12, 250-300 calories [facility] Medical History Preprocedural examination SAVANNAH (obstructive sleep apnea) Tooth loose Postoperative nausea Back pain Knee pain Surgical History S/P laparoscopic sleeve gastrectomy Hx of oral surgery Hx of bladder endoscopy Hx of cholecystectomy Social History Household Members: Significant Other Housing: Apartment Are you a primary tree care foreman to a significant other at home: No Do you presently have visiting nurse or other home services: No Alcohol intake: current Alcohol intake frequency: holidays/special occasions only Comment: bathroom-aware of trip hazard Patient Tobacco Use Status: Never used Tobacco Substance Use Type: Marijuana Physical Exam Back/Spine/Pelvis Back: back tenderness (Bilateral rhomboids) Skin Other: Incisions healing well. Assessment & Plan Assessment & Plan (1) Obesity (BMI 30-39.9): Code(s): E66.9 - Obesity, unspecified Plan: Patient will continue current shakes. I suggested he try the Atkins poor again, breaking it in the 6 pieces, lasting 3 hours with 1 piece per 1/2 hour. He was enquiring about starting food and he will discuss this with Dr. Smallwood. Return to clinic 3 weeks. (2) Back muscle spasm: Code(s): M62.830 - Muscle spasm of back Plan: Muscle tension of bilateral rhomboid. He will discuss with the trainers at the gym stretching. Recommendation is for moist heat, Tylenol, avoiding NSAIDs. Coding Level of Care Code Global (48865) Diagnoses Obesity (BMI 30-39.9) E66.9 Back muscle spasm M62.830
[2023-08-14 09:58] VITALS: BP 134/60; PULSE 71; TEMP 36.5; O2SAT 97; BMI 37.8
== END 2023-08-14 10:19 | disposition home or self-care (01) ==
PROVIDERS: Visit Provider Physician Assistant Surgical
DX: E66.9 Obesity, unspecified (principal); M62.830 Muscle spasm of back
CPT/HCPCS: 99024

== ENCOUNTER → 2023-08-14 09:47 | Outpatient (BNVA) | payer OTHER, SELFPAY | PROVIDERS: Visit Provider Physician Assistant Surgical ==

== ENCOUNTER 2023-09-14 11:40 | Outpatient (AMB) | payer OTHER, SELFPAY ==
--- NOTE | 2023-09-14 09:26 | A.OFFVIS_ITS ---
Intake VS Expanded 09/14/23 09:27 Height 5 ft 9 in Weight 248 lb 12.8 oz BMI 36.7 Body Fat % 36.9 Body Fat Mass 91.8 Fat Free Mass 157 Visceral Fat Rating 19 Body Water % 45.6 Body Water Mass 113.4 Muscle Mass/Score 149.2 Basal Metabolic Rate/Score 1,908 Intake Visit Reasons: (TV) po LSG 07/17/23 Risk Manager Required: No Allergies No Known Allergies Allergy (Verified 08/14/23 09:53) Medication List - Last Reconciled 09/14/23 by DROINDA Ruiz pantoprazole 40 mg PO DAILY sucralfate 10 mL PO BID HPI HPI Comments History of Present Illness Details This?a?38?yo male who is s/p LSG without hiatal hernia repair on?07/17/23. Presents for 2 month post op visit. Weight today is 248.8 pounds, with a BMI of 36.7. There has been a 69.6 pound weight loss,(initial weight 318.4 pounds) since starting the program on 03/29/2023 reflecting a 21.8 % total body weight loss and a weight loss of 35.4 pounds since surgery (operative weight 284.2 pounds) reflecting a 12.4 % TBWL since surgery. No complaints of nausea, emesis, abdominal pain or reflux. Reports infrequent but normal bowel movements every 2-3 days and does not use stool softeners regularly. He has noticed an increase energy. He also reports some back pain but improved with stretching at the gym. Present meal plan includes: celebrate 4 in 1, 2 scoops w 8 oz almond milk, (10-12, 2-4 when not working), (3-5 pm, 7-9 pm - working) Cloudary shake RTD 30 gm, 9-10pm drinking about 64 oz water daily Exercise routine includes: lifting weights - 3-4 days per week 3-4 days treadmill speed 3.2 incline 5-1 2, 300 calories [facility] Medical History Preprocedural examination SAVANNAH (obstructive sleep apnea) Tooth loose Postoperative nausea Back pain Knee pain Surgical History S/P laparoscopic sleeve gastrectomy Hx of oral surgery Hx of bladder endoscopy Hx of cholecystectomy Social History Household Members: Significant Other Housing: Apartment Are you a primary urgent care physician assistant to a significant other at home: No Do you presently have visiting nurse or other home services: No Alcohol intake: current Alcohol intake frequency: holidays/special occasions only Comment: bathroom-aware of trip hazard Patient Tobacco Use Status: Never used Tobacco Substance Use Type: Marijuana Review of Systems Const All systems reviewed & are unremarkable except as noted in HPI and below Assessment & Plan Assessment & Plan (1) Obesity (BMI 30-39.9): Code(s): E66.9 - Obesity, unspecified Plan: Overall, patient is doing well. He continues to lose weight. He does want to incorporate food. We will change his meal plan to include celebrate 4 in 1, 2 shakes, two scoops of powder each in 8 oz of unsweetened almond milk and a meal consisting of 6 forks of protein and for forks of cooked vegetables. I have encouraged him to increase his speed on the treadmill at the gym to 3.4 with a goal of increasing calories burned to 400. Return to the office in 3-4 weeks Telehealth Telehealth Location of provider rendering services: practice address Location of patient: address on file Patient Identification confirmed using: Name, : Yes Telehealth method: voice only Patient verbally consented to treatment: Yes Patient verbally consented to billing insurance company: Yes Patient informed of any privacy concerns related to visit: Yes Minutes spent on Phone/Video with Pt.: 12 Coding Level of Care Code Global (77672) Diagnoses Obesity (BMI 30-39.9) E66.9
[2023-09-14 09:27] VITALS: BMI 36.7
== END 2023-09-14 11:43 | disposition home or self-care (01) ==
LOC: HO.HBS 11:40
PROVIDERS: Visit Provider Physician Assistant Surgical
DX: E66.9 Obesity, unspecified (principal)
CPT/HCPCS: 99024

== ENCOUNTER → 2023-09-14 11:40 | Outpatient (BNVA) | payer OTHER, SELFPAY | PROVIDERS: Visit Provider Physician Assistant Surgical ==

== ENCOUNTER 2023-10-19 09:52 | Outpatient (AMB) | payer OTHER, SELFPAY ==
--- NOTE | 2023-10-19 09:10 | A.OFFVIS_ITS ---
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 3. Presents for 3 month post op visi t. Weight today is 234 pounds, with a BMI of 34.6. Th ere has been a 84. 4 pound weight los s,(initial weight 318.4 pounds) sinc e starting the pro gram on 03/29/2023 r eflecting a 26.5 % total body weight loss and a weight loss of 50.2 poun ds since surgery ( operative weight 2 84.2 pounds) refle cting a 17.6 % TBW L since surgery. No complaints of n ausea, emesis, abd ominal pain or ref lux. Reports infre quent but normal b owel movements rodrigue ry 2-3 days and do es not use stool s ofteners regularly . He has noticed an increase energy . He also reports some back pain bu t improved with st retching at the gy m. He is doing we ll with the meal p jessica. Present me al plan includes: celebrate 4 in 1, 2 shakes, two sco ops of powder each in 8 oz of unswee tened almond milk and a meal consist ing of 6 forks of protein and 4 fork s of cooked vegeta bles. drinking abo ut 64 oz water homa ly Exercise rout ine includes: lift ing weights - 3-4 days per week 3-4 days treadmill sp eed 3.5, incline 6 -12, 250 calories, looking to purcha se a treadmill PFSH Medical History Preprocedural examination SAVANNAH (obstructive sleep apnea) Tooth loose Postoperative nausea Back pain Knee pain Surgical History S/P laparoscopic sleeve gastrectomy Hx of oral surgery Hx of bladder endoscopy Hx of cholecystectomy Social History Household Members: Significant Other Housing: Apartment Are you a primary attending ambulatory care to a significant other at home: No Do you presently have visiting nurse or other home services: No Alcohol intake: current Alcohol intake frequency: holidays/special occasions only Comment: bathroom-aware of trip hazard Patient Tobacco Use Status: Never used Tobacco Substance Use Type: Marijuana Review of Systems Const All systems reviewed & are unremarkable except as noted in HPI and below Assessment & Plan Assessment & Plan (1) Obesity (BMI 30-39.9): Code(s): E66.9 - Obesity, unspecified Plan: Patient is making excellent progress. Down 84 lb since presentation. He is satisfied with his current meal plan and will continue as such. Recommend increase calories burned at the gym by increasing duration on the treadmill. He is looking into purchasing a treadmill to have at home. We will have him return to the office in approximately 1 month. With the expectation that he will continue to text with any questions or concerns. Telehealth Telehealth Location of provider rendering services: practice address Location of patient: address on file Patient Identification confirmed using: Name, : Yes Telehealth method: voice only Patient verbally consented to treatment: Yes Patient verbally consented to billing insurance company: Yes Patient informed of any privacy concerns related to visit: Yes Minutes spent on Phone/Video with Pt.: 12 Coding Level of Care Code Tele Est Pt Level 3 (59252) Diagnoses Obesity (BMI 30-39.9) E66.9 Time Spent (min) 18
[2023-10-19 09:43] VITALS: BMI 34.6
== END 2023-10-19 09:57 | disposition home or self-care (01) ==
LOC: HO.HBS 09:53
PROVIDERS: Visit Provider Physician Assistant Surgical
DX: E66.9 Obesity, unspecified (principal)
CPT/HCPCS: 99213

== ENCOUNTER → 2023-10-19 09:52 | Outpatient (BNVA) | payer OTHER, SELFPAY | PROVIDERS: Visit Provider Physician Assistant Surgical ==

== ENCOUNTER 2023-11-19 11:37 | Outpatient (AMB) | payer OTHER, SELFPAY ==
--- NOTE | 2023-11-19 09:06 | A.OFFVIS_ITS ---
Intake VS Expanded 11/19/23 11:24 Height 5 ft 9 in Weight 226 lb 12.8 oz BMI 33.5 Body Fat % 31.9 Body Fat Mass 2.3 Fat Free Mass 154.4 Visceral Fat Rating 15 Body Water % 49.1 Body Water Mass 111.1 Muscle Mass/Score 146.6 Basal Metabolic Rate/Score 1,882 Intake Visit Reasons: (TV) PO LSG 07/17/23 Allergies No Known Allergies Allergy (Verified 08/14/23 09:53) HPI HPI Comments History of Present Illness Details This?a?38?yo male who is s/p LSG without hiatal hernia repair on?07/17/23. Presents for 4 month post op visit. Weight today is 226.8 pounds, with a BMI of 33.6. There has been a 91.6 pound weight loss,(initial weight 318.4 pounds) since starting the program on 03/29/2023 reflecting a 28.7 % total body weight loss and a weight loss of 57.4 pounds since surgery (operative weight 284.2 pounds) reflecting a 20.1 % TBWL since surgery. No complaints of nausea, emesis, abdominal pain or reflux. Reports infrequent but normal bowel movements every 2-3 days and does not use stool softeners regularly. He has noticed an increase energy. He also reports some back pain but improved with stretching at the gym. Present meal plan includes: celebrate 4 in 1, 2 scoops w 8 oz almond milk, (10-12, 2-4 when not working), (3-5 pm, 7-9 pm - working) meal with 6 forks of protein and 6 forks vegetables 9-10pm drinking about 64 oz water daily Exercise routine includes: lifting weights - 3-4 days per week 3-4 days treadmill speed 3.2 incline 5-1 2, 500 calories PFSH Medical History Preprocedural examination SAVANNAH (obstructive sleep apnea) Tooth loose Postoperative nausea Back pain Knee pain Surgical History S/P laparoscopic sleeve gastrectomy Hx of oral surgery Hx of bladder endoscopy Hx of cholecystectomy Social History Household Members: Significant Other Housing: Apartment Are you a primary clinical manager home care to a significant other at home: No Do you presently have visiting nurse or other home services: No Alcohol intake: current Alcohol intake frequency: holidays/special occasions only Comment: bathroom-aware of trip hazard Patient Tobacco Use Status: Never used Tobacco Substance Use Type: Marijuana Assessment & Plan Assessment & Plan (1) Obesity (BMI 30-39.9): Code(s): E66.9 - Obesity, unspecified Plan: Patient is making excellent progress. We will continue current meal plan as he does not wish to change at this time. He is returning to the gym after being off for a week to attend a in the family. We will have him return to the office in approximately 2 months with a phone appointment in approximately 1 month. He will continue to text weekly especially if any questions or concerns. Telehealth Telehealth Location of provider rendering services: practice address Location of patient: address on file Patient Identification confirmed using: Name, : Yes Telehealth method: voice only Patient verbally consented to treatment: Yes Patient verbally consented to billing insurance company: Yes Patient informed of any privacy concerns related to visit: Yes Minutes spent on Phone/Video with Pt.: 10 Coding Level of Care Code Tele Est Pt Level 3 (96859) Diagnoses Obesity (BMI 30-39.9) E66.9 Time Spent (min) 15
[2023-11-19 11:24] VITALS: BMI 33.5
== END 2023-11-19 13:15 | disposition home or self-care (01) ==
LOC: HO.HBS 11:37
PROVIDERS: Visit Provider Physician Assistant Surgical
DX: E66.9 Obesity, unspecified (principal)
CPT/HCPCS: 99213

== ENCOUNTER → 2023-11-19 11:37 | Outpatient (BNVA) | payer OTHER, SELFPAY | PROVIDERS: Visit Provider Physician Assistant Surgical | DX: E66.9 Obesity, unspecified (principal) ==

== ENCOUNTER 2024-01-31 12:10 | Outpatient (REF) | payer OTHER, SELFPAY ==
[2024-01-31 12:33] LABS: MANUAL DIFF FLAG NO
[2024-01-31 12:43] LABS: Estimated Average Glucose 100 mg/dL; Hemoglobin A1c % 5.1 % (<6.0)
[2024-01-31 12:45] LABS: Basophils Percent Auto 0.8 % (0-2); Eosinophils Absolute Auto 0.1 X10*3/uL (0.0-0.4); Eosinophils Percent Auto 2.5 % (0-4); Hematocrit 40.8 % (42.0-52.0); Hemoglobin 13.2 g/dl (14.0-18.0); Imm Gran Abs Auto 0.01 X10*3/uL (0.00-0.03); Imm Gran Pct Auto 0.2 % (0.0-0.4); Lymphocytes Absolute Auto 1.7 X10*3/uL (1.2-4.9); Lymphocytes Percent Auto 35.3 % (20-40); Mean Corpuscular HGB Conc 32.4 g/dl (31.0-36.0); Mean Corpuscular Hemoglobin 28.4 pg (27.0-33.0); Mean Corpuscular Volume 87.7 fL (80.0-98.0); Mean Platelet Volume 8.9 fL (9.4-12.4); Monocytes Absolute Auto 0.4 X10*3/uL (0.1-1.2); Monocytes Percent Auto 7.7 % (2-11); Neutrophils Absolute Auto 2.6 x10*3/uL (2.0-8.3); Neutrophils Percent Auto 53.5 % (45-73); Platelet Count 314 X10*3/uL (160-400); Red Blood Count 4.65 X10*6/uL (4.60-5.80); Red Cell Distribution Width 13.6 % (11.0-16.0); White Blood Count 4.8 X10*3/uL (4.8-10.8)
[2024-01-31 13:20] LABS: Anion Gap 8 (12-20); Blood Urea Nitrogen 12 mg/dL (9-16); C Reactive Protein < 0.04 mg/dL (< or = 0.50); Calcium 9.8 mg/dL (8.4-10.2); Carbon Dioxide 32 mmol/L (22-29); Chloride 107 mmol/L (96-108); Cholesterol 161 mg/dL (<200); Estimated Glomerular Filt Rate > 60; Glucose Random 93 mg/dL (60-115); HDL Cholesterol 44 mg/dL (>40); Iron 126 mcg/dL (45-160); LDL Cholesterol Calculated 104 mg/dL (<100); Percent Iron Saturation 47 % (15-50); Potassium 4.4 mmol/L (3.3-5.1); Sodium 143 mmol/L (135-145); Total Iron Binding Capacity 270 mcg/dL (228-428); Triglycerides 68 mg/dL (<150); Unsaturated Iron Binding 144 ug/dL
[2024-01-31 13:35] LABS: Ferritin 187 ng/mL (20-250); Insulin 4 uU/mL (2-29); TSH reflex Free T4 1.47 uIU/mL (0.32-4.0); Vitamin D 25-OH Total 28.3 ng/mL (>30)
[2024-01-31 13:44] LABS: Folate 2.8 ng/mL (> or = 4.0); Vitamin B12 358 pg/mL (200-900)
[2024-02-04 22:13] LABS: Zinc 72 mcg/dL (60-130)
[2024-02-06 05:28] LABS: Vitamin A 28 mcg/dL (38-98)
[2024-02-07 14:33] LABS: Vitamin B1 11 nmol/L (8-30)
== END 2024-01-31 12:11 | disposition home or self-care (01) ==
LOC: HO.LAB 12:10
PROVIDERS: Visit Provider Physician Assistant Surgical
DX: E66.9 Obesity, unspecified (principal); Z98.84 Bariatric surgery status; E78.5 Hyperlipidemia, unspecified
CPT/HCPCS: 36415; 80048; 80061; 82306; 82607; 82728; 82746; 83036; 83525; 83540; 84425; 84443; 84590; 84630; 85025; 86140

== ENCOUNTER 2024-02-12 14:20 | Outpatient (AMB) | payer OTHER, SELFPAY ==
--- NOTE | 2024-02-12 14:21 | A.OFFVIS_ITS ---
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 Presents for 7 month post op visit. Weight today is 208.2 pounds, with a BMI of 30.8. There has been a 110.2 pound weight loss,(initial weight 318.4 pounds) since starting the program on 03/29/2023 reflecting a 34.6 % total body weight loss and a weight loss of 76 pounds since surgery (operative weight 284.2 pounds) reflecting a 26.7 % TBWL since surgery. No complaints of nausea, emesis, abdominal pain or reflux. Reports infrequent but normal bowel movements every 2-3 days and does not use stool softeners regularly. He has noticed an increase energy. He also reports some back pain but improved with stretching at the gym. Patient states that he would like to switch from celebrate to muscle milk which is 30 g of protein per 2 scoops. Present meal plan includes: celebrate 4 in 1, 2 scoops w 8 oz almond milk, (10-12, 2-4 when not working), (3-5 pm, 7-9 pm - working) meal with 6 forks of protein and 6 forks vegetables 9-10pm drinking about 120 oz water daily Exercise routine includes: lifting weights - 3-4 days per week 3-4 days treadmill speed 3.2 incline 5-12, 500 calories [facility] Medical History Preprocedural examination SAVANNAH (obstructive sleep apnea) Tooth loose Postoperative nausea Back pain Knee pain Surgical History S/P laparoscopic sleeve gastrectomy Hx of oral surgery Hx of bladder endoscopy Hx of cholecystectomy Social History Household Members: Significant Other Housing: Apartment Are you a primary rn transitional care to a significant other at home: No Do you presently have visiting nurse or other home services: No Alcohol intake: current Alcohol intake frequency: holidays/special occasions only Comment: bathroom-aware of trip hazard Patient Tobacco Use Status: Never used Tobacco Substance Use Type: Marijuana Physical Exam Const General: healthy appearing and no acute distress Resp Effort & Inspection: normal respiratory effort Auscultation: clear to auscultation bilaterally Cardio Rate: regular rate Rhythm: regular rhythm GI Auscultation: normal bowel sounds Extrem General: Yes normal to inspection Assessment & Plan Assessment & Plan (1) S/P laparoscopic sleeve gastrectomy: Comment: 07/17/23 Code(s): Z98.84 - Bariatric surgery status Category: Surgical Plan: Overall doing well. Would like to switch away from celebrate. Muscle milk, 2 scoops in the 1st shake, 1 scoop in the 2nd shake with 10 oz of unsweetened almond milk or 1.5 scoops per shake (30 g per 2 scoops) Meal 6 forks of protein and 6 forks of veggies. Continue exercise. Return to clinic in 2 months with the understanding to text with any questions or concerns. Add bariatric fusion multivitamin 2 tabs or chews daily and calcium plus D daily (2) Vitamin A deficiency: Code(s): E50.9 - Vitamin A deficiency, unspecified Category: Medical Plan: Supplement with vitamin a for a month and repeat labs. Orders: Orders Vitamin A Today E50.9 - Vitamin A deficiency, unspecified, E66.9 - Obesity, unspecified, Z98.84 - Bariatric surgery status Vitamin B12 and Folate Today E50.9 - Vitamin A deficiency, unspecified, E66.9 - Obesity, unspecified, Z98.84 - Bariatric surgery status Medications: New vitamin A palmitate 3,000 mcg PO DAILY 30 caps 0RF folic acid 1 mg PO DAILY 30 tabs 0RF
[2024-02-12 14:35] VITALS: BP 131/61; PULSE 68; TEMP 36.6; O2SAT 97; BMI 30.7
== END 2024-02-12 14:57 | disposition home or self-care (01) ==
PROVIDERS: Visit Provider Physician Assistant Surgical
DX: E50.9 Vitamin A deficiency, unspecified (principal); E66.9 Obesity, unspecified; Z68.30 Body mass index [BMI] 30.0-30.9, adult; Z98.84 Bariatric surgery status
CPT/HCPCS: 99214

== ENCOUNTER → 2024-02-12 14:20 | Outpatient (BNVA) | payer OTHER, SELFPAY | PROVIDERS: Visit Provider Physician Assistant Surgical ==

== ENCOUNTER 2024-04-14 14:36 | Outpatient (AMB) | payer BC, SELFPAY ==
--- NOTE | 2024-04-14 14:24 | MHC.OFFVISWM ---
VS Expanded 04/14/24 14:25 Height 5 ft 9 in Weight 203 lb 4 oz BMI 30.0 Body Fat % 26.7 Body Fat Mass 54.3 Fat Free Mass 149.2 Visceral Fat Rating 12 Body Water % 53 Body Water Mass 107.8 Muscle Mass/Score 141.8 Basal Metabolic Rate/Score 1,831 Intake Visit Reasons: (tV) PO LSG 07/17/23 Allergies No Known Allergies Allergy (Verified 02/12/24 14:37) HPI Comments Details: This?a?38?yo male who is s/p LSG without hiatal hernia repair on?07/17/23. Presents for 9 month post op visit. Weight today is 203.4 pounds, with a BMI of 30. There has been a 115 pound weight loss,(initial weight 318.4 pounds) since starting the program on 03/29/2023 reflecting a 36.1 % total body weight loss and a weight loss of 80.8 pounds since surgery (operative weight 284.2 pounds) reflecting a 28.4 % TBWL since surgery. No complaints of nausea, emesis, abdominal pain or reflux. Reports infrequent but normal bowel movements every 2-3 days and does not use stool softeners regularly. 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 He has been trying to revolve his meal plan around his new work. Patient states that he would like to switch from celebrate to muscle milk which is 30 g of protein per 2 scoops. Present meal plan includes: Muscle milk, 2 scoops in the 1st shake, 1 scoop in the 2nd shake with 10 oz of unsweetened almond milk or 1.5 scoops per shake (30 g per 2 scoops) Meal 6 forks of protein and 6 forks of veggies. drinking about 64 oz water daily Exercise routine includes: lifting weights - 3-4 days per week 3-4 days treadmill speed 3.5 speed incline 7-12, 500 calorie stairmaster, 100 calories PFSH Medical History Preprocedural examination SAVANNAH (obstructive sleep apnea) Tooth loose Postoperative nausea Back pain Knee pain Surgical History S/P laparoscopic sleeve gastrectomy Hx of oral surgery Hx of bladder endoscopy Hx of cholecystectomy Social History Household Members: Significant Other Housing: Apartment Are you a primary career technical counselor to a significant other at home: No Do you presently have visiting nurse or other home services: No Alcohol intake: current Alcohol intake frequency: holidays/special occasions only Comment: bathroom-aware of trip hazard Patient Tobacco Use Status: Never used Tobacco Substance Use Type: Marijuana Telehealth Telehealth Telehealth Platform: Telephone Location of provider rendering services: practice address Location of patient: address on file Patient Identification confirmed using: Name, : Yes Telehealth method: voice only Patient verbally consented to treatment: Yes Patient verbally consented to billing insurance company: Yes Patient informed of any privacy concerns related to visit: Yes Minutes spent on Phone/Video with Pt.: 15 Assessment & Plan Assessment & Plan (1) Obesity (BMI 30-39.9): Code(s): E66.9 - Obesity, unspecified Category: Medical Plan: Patient continues to do well. Unfortunately given his recent job change, his insurance changed and he did not get his blood work done. 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 Additionally, we will change his meal plans slightly: Muscle milk, 1 scoops in the 1st shake, 1 scoop in the 2nd shake with 10 oz of unsweetened almond milk (30 g per 2 scoops) Meal 6 forks of protein and 6 forks of veggies. Encouraged to continue his efforts at the gym. We will have him return to the office in approximately 1 month. Additionally, encouraged to continue to text weekly with weights and if he has any questions or concerns.
== END 2024-04-14 14:41 | disposition home or self-care (01) ==
LOC: HO.HBS 14:36
PROVIDERS: Visit Provider Physician Assistant Surgical
DX: E66.9 Obesity, unspecified (principal)
CPT/HCPCS: 99213

== ENCOUNTER → 2024-04-14 14:36 | Outpatient (BNVA) | payer BC, SELFPAY | PROVIDERS: Visit Provider Physician Assistant Surgical | DX: E66.9 Obesity, unspecified (principal); Z98.84 Bariatric surgery status; E50.9 Vitamin A deficiency, unspecified ==

== ENCOUNTER 2024-05-16 12:53 | Outpatient (AMB) | payer BC, SELFPAY ==
[2024-05-16 11:24] VITALS: BMI 30.7
--- NOTE | 2024-05-16 11:24 | MHC.OFFVISWM ---
VS Expanded 05/16/24 11:24 Height 5 ft 9 in Weight 208 lb BMI 30.7 Intake Visit Reasons: (TV) PO LSG 07/17/23 Allergies No Known Allergies Allergy (Verified 02/12/24 14:37) HPI Comments Details: This?a?38?yo male who is s/p LSG without hiatal hernia repair on?07/17/23. Presents for 10 month post op visit. Weight today is 208 pounds, with a BMI of 30.7. There has been a 110.4 pound weight loss,(initial weight 318.4 pounds) since starting the program on 03/29/2023 reflecting a 34.6 % total body weight loss and a weight loss of 76.2 pounds since surgery (operative weight 284.2 pounds) reflecting a 26.8 % TBWL since surgery. No complaints of nausea, emesis, abdominal pain or reflux. Reports infrequent but normal bowel movements every 2-3 days and does not use stool softeners regularly. He no longer works for [email or web address] and now works at [employer] and [email or web address]. He has been trying to revolve his meal plan around his new work. Patient states that he would like to switch from celebrate to muscle milk which is 30 g of protein per 2 scoops. He has had significant difficulty maintaining a scheduled due to the training for his new job. This has caused no consistency. The training. As scheduled to end May 27. Present meal plan includes: Muscle milk, 2 scoops in the 1st shake, 1 scoop in the 2nd shake with 10 oz of unsweetened almond milk (30 g per 2 scoops) Meal 6 forks of protein and 6 forks of veggies. drinking about 64 oz water daily Exercise routine includes: lifting weights - 3-4 days per week 3-4 days treadmill speed 3.5 speed incline 7-12, 500 calorie stairmaster, 100 calories PFSH Medical History Preprocedural examination SAVANNAH (obstructive sleep apnea) Tooth loose Postoperative nausea Back pain Knee pain Surgical History S/P laparoscopic sleeve gastrectomy Hx of oral surgery Hx of bladder endoscopy Hx of cholecystectomy Social History Household Members: Significant Other Housing: Apartment Are you a primary disabilities caregiver to a significant other at home: No Do you presently have visiting nurse or other home services: No Alcohol intake: current Alcohol intake frequency: holidays/special occasions only Comment: bathroom-aware of trip hazard Patient Tobacco Use Status: Never used Tobacco Substance Use Type: Marijuana Telehealth Telehealth Telehealth Platform: Telephone Location of provider rendering services: practice address Location of patient: address on file Patient Identification confirmed using: Name, : Yes Telehealth method: voice only Patient verbally consented to treatment: Yes Patient verbally consented to billing insurance company: Yes Patient informed of any privacy concerns related to visit: Yes Minutes spent on Phone/Video with Pt.: 15 Assessment & Plan Assessment & Plan (1) Obesity (BMI 30-39.9): Code(s): E66.9 - Obesity, unspecified Category: Medical Plan: He will resume his meal plan as soon as possible including exercise. He will text weekly with any questions or concerns as well as his weights. I suspect that he will return to a very successful weight loss plan given that he did so well prior to the current inconsistent work schedule. He will return to the office in approximately 3-4 weeks.
== END 2024-05-16 13:04 | disposition home or self-care (01) ==
LOC: HO.HBS 12:53
PROVIDERS: Visit Provider Physician Assistant Surgical
DX: E66.9 Obesity, unspecified (principal); Z68.30 Body mass index [BMI] 30.0-30.9, adult
CPT/HCPCS: 98967

== ENCOUNTER → 2024-05-16 12:53 | Outpatient (BNVA) | payer BC, SELFPAY | PROVIDERS: Visit Provider Physician Assistant Surgical ==

== ENCOUNTER 2024-06-16 13:56 | Outpatient (AMB) | payer BC, SELFPAY ==
[2024-06-16 08:29] VITALS: BMI 30.8
--- NOTE | 2024-06-16 08:29 | A.OFFVIS_ITS ---
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 Presents for 11 month post op visit. Weight today is 208.8 pounds, with a BMI of 30.8. There has been a 111.2 pound weight loss,(initial weight 318.4 pounds) since starting the program on 03/29/2023 reflecting a 34.7 % total body weight loss and a weight loss of 77 pounds since surgery (operative weight 284.2 pounds) reflecting a 26.9 % TBWL since surgery. No complaints of nausea, emesis, abdominal pain or reflux. Reports infrequent but normal bowel movements every 2-3 days and does not use stool softeners regularly. He no longer works for [employer] and now works at [employer] and [employer]. He states his job hours are now more stable Present meal plan includes: Muscle milk, 1 scoop in the 1st shake, 1 scoop in the 2nd shake with 10 oz of unsweetened almond milk (30 g per 2 scoops) Meal 6 forks of protein and 6 forks of veggies. drinking about 64 oz water daily Exercise routine includes: lifting weights - 2-3 days per week 2-3 days treadmill speed 3.5 speed incline 7-12, 500 calorie [facility] Medical History Preprocedural examination SAVANNAH (obstructive sleep apnea) Tooth loose Postoperative nausea Back pain Knee pain Surgical History S/P laparoscopic sleeve gastrectomy Hx of oral surgery Hx of bladder endoscopy Hx of cholecystectomy Social History Household Members: Significant Other Housing: Apartment Are you a primary urgent care physician assistant to a significant other at home: No Do you presently have visiting nurse or other home services: No Alcohol intake: current Alcohol intake frequency: holidays/special occasions only Comment: bathroom-aware of trip hazard Patient Tobacco Use Status: Never used Tobacco Substance Use Type: Marijuana Telehealth Telehealth Telehealth Platform: Telephone Location of provider rendering services: practice address Location of patient: address on file Patient Identification confirmed using: Name, : Yes Telehealth method: voice only Patient verbally consented to treatment: Yes Patient verbally consented to billing insurance company: Yes Patient informed of any privacy concerns related to visit: Yes Minutes spent on Phone/Video with Pt.: 15 Assessment & Plan Assessment & Plan (1) S/P laparoscopic sleeve gastrectomy: Comment: 07/17/23 Code(s): Z98.84 - Bariatric surgery status Category: Surgical Plan: Overall, he is showing improvement. He did have a stall due to his job requirements and learning at his new job. The hours have now stabilized and he is able to go to the gym more consistently. I encouraged him to go more than 2 or 3 times per week, something like 4-5 times per week continuing burning 500 calories per session. Additionally, he will change his meal plan to incorporate 2 shakes, 1.5 scoops each and 6 forks of protein and 6 of vegetables at his meal. Continue to send weight is weekly as well as text with any questions or concerns. Return to the office in 1 month for his 1 year follow-up.
== END 2024-06-16 14:03 | disposition home or self-care (01) ==
LOC: HO.HBS 13:56
PROVIDERS: Visit Provider Physician Assistant Surgical
DX: E66.811 Obesity, class 1 (principal); Z68.30 Body mass index [BMI] 30.0-30.9, adult; Z90.3 Acquired absence of stomach [part of]; Z98.84 Bariatric surgery status
CPT/HCPCS: 98967

== ENCOUNTER → 2024-06-16 13:56 | Outpatient (BNVA) | payer BC, SELFPAY | PROVIDERS: Visit Provider Physician Assistant Surgical | DX: Z98.84 Bariatric surgery status (principal) ==

== ENCOUNTER 2024-07-17 14:17 | Outpatient (AMB) | payer BC, SELFPAY ==
--- NOTE | 2024-07-17 14:24 | MHC.OFFVISWM ---
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 Presents for 1 year post op visit. Weight today is 218.6 pounds, with a BMI of 31.8. There has been a 99.8 pound weight loss,(initial weight 318.4 pounds) since starting the program on 03/29/2023 reflecting a 31.3 % total body weight loss and a weight loss of 65.6 pounds since surgery (operative weight 284.2 pounds) reflecting a 23 % TBWL since surgery. No complaints of nausea, emesis, abdominal pain or reflux. Reports infrequent but normal bowel movements every 2-3 days and does not use stool softeners regularly. He Is now working 2 jobs. He has had difficulty maintaining consistency with the meal plan and exercise plan given increased work requirements. Eating bagal and creamcheese, fast food Recommendedmeal plan includes: Muscle milk, 1.5 scoop in each shake with 10 oz of unsweetened almond milk (30 g per 2 scoops) Meal 6 forks of protein and 6 forks of veggies. drinking about 64 oz water daily Exercise routine includes: lifting weights - 2-3 days per week 2 days treadmill speed 3.5 speed incline 7-12, 500 calorie Any post op complications: none SAVANNAH: resolved DM: never HTN: never Hyperlipidemia: improved GERD:?0-5 scale ??0 = no symptoms ??1 = symptoms noticeable but not bothersome 2 =symptoms bothersome but not daily ? 3 = symptoms bothersome and daily 4 = symptoms affect daily activities 5 = symptoms are incapacitating, unable to do daily activities ? How bad is the heartburn: 0 ? Heartburn while lying down: 0 ? Heartburn when standing up: 0 ? Heartburn after meals: 0 ? Does heartburn change your diet: 0 ? Does heartburn wake you up from sleep: 0 ? Do you have difficulty swallowin ? Do you have pain with swallowin ? If you take medicine for your reflux, does this affect your daily life: 0 Satisfaction with present condition - satisfied or not satisfied: satisfied [facility] Medical History Preprocedural examination SAVANNAH (obstructive sleep apnea) Tooth loose Postoperative nausea Back pain Knee pain Surgical History S/P laparoscopic sleeve gastrectomy Hx of oral surgery Hx of bladder endoscopy Hx of cholecystectomy Social History Household Members: Significant Other Housing: Apartment Are you a primary plant health care technician to a significant other at home: No Do you presently have visiting nurse or other home services: No Alcohol intake: current Alcohol intake frequency: holidays/special occasions only Comment: bathroom-aware of trip hazard Patient Tobacco Use Status: Never used Tobacco Substance Use Type: Marijuana Physical Exam Const General: cooperative and no acute distress Orientation/consciousness: patient oriented x3 Resp Effort & Inspection: normal respiratory effort Auscultation: clear to auscultation bilaterally Cardio Rate: regular rate Rhythm: regular rhythm GI Inspection: Yes normal to inspection and Yes incision (well healed) Palpation (GI): Soft to palpation and no masses Neuro General: patient oriented x3 Assessment & Plan Assessment & Plan (1) S/P laparoscopic sleeve gastrectomy: Comment: 07/17/23 Code(s): Z98.84 - Bariatric surgery status Category: Surgical Plan: patient has been working 2 jobs. He has been inconsistent with his meal plan. He has been eating bag goals as well as intermittent fast food. He is exercising on the weekends but has been unable to exercise during the week. I did give him information regarding the right BMI adri. I have encouraged him to follow the meal plan as directed through the adri. he states that he will do so. Encouraged to continue exercise on the weekends as much as he is able as well as trying to find 1-2 days during the week. I have ordered 1 year postop labs. Encouraged to send weight is weekly and text with any questions or concerns. Return to clinic 1 month. Orders: Orders Complete Blood Count Auto Diff Today E50.9 - Vitamin A deficiency, unspecified, E78.5 - Hyperlipidemia, unspecified, Z98.84 - Bariatric surgery status IRON PROFILE Today E50.9 - Vitamin A deficiency, unspecified, E78.5 - Hyperlipidemia, unspecified, Z98.84 - Bariatric surgery status Vitamin B12 and Folate Today E50.9 - Vitamin A deficiency, unspecified, E78.5 - Hyperlipidemia, unspecified, Z98.84 - Bariatric surgery status C Reactive Protein Today E50.9 - Vitamin A deficiency, unspecified, E78.5 - Hyperlipidemia, unspecified, Z98.84 - Bariatric surgery status Vitamin B1 Today E50.9 - Vitamin A deficiency, unspecified, E78.5 - Hyperlipidemia, unspecified, Z98.84 - Bariatric surgery status Vitamin A Today E50.9 - Vitamin A deficiency, unspecified, E78.5 - Hyperlipidemia, unspecified, Z98.84 - Bariatric surgery status Vitamin D 25-OH Total Today E50.9 - Vitamin A deficiency, unspecified, E78.5 - Hyperlipidemia, unspecified, Z98.84 - Bariatric surgery status Insulin Today E50.9 - Vitamin A deficiency, unspecified, E78.5 - Hyperlipidemia, unspecified, Z98.84 - Bariatric surgery status Hemoglobin A1c Today E50.9 - Vitamin A deficiency, unspecified, E78.5 - Hyperlipidemia, unspecified, Z98.84 - Bariatric surgery status Lipid Panel Today E50.9 - Vitamin A deficiency, unspecified, E78.5 - Hyperlipidemia, unspecified, Z98.84 - Bariatric surgery status Comprehensive Met. Panel Today E50.9 - Vitamin A deficiency, unspecified, E78.5 - Hyperlipidemia, unspecified, Z98.84 - Bariatric surgery status Zinc Today E50.9 - Vitamin A deficiency, unspecified, E78.5 - Hyperlipidemia, unspecified, Z98.84 - Bariatric surgery status TSH reflex Free T4 Today E50.9 - Vitamin A deficiency, unspecified, E78.5 - Hyperlipidemia, unspecified, Z98.84 - Bariatric surgery status Ferritin Today E50.9 - Vitamin A deficiency, unspecified, E78.5 - Hyperlipidemia, unspecified, Z98.84 - Bariatric surgery status
[2024-07-17 14:30] VITALS: BP 136/65; PULSE 55; TEMP 36.2; O2SAT 100; BMI 32.3
== END 2024-07-17 14:42 | disposition home or self-care (01) ==
PROVIDERS: Visit Provider Physician Assistant Surgical
DX: E66.09 Other obesity due to excess calories (principal); E66.811 Obesity, class 1; Z68.32 Body mass index [BMI] 32.0-32.9, adult; Z98.84 Bariatric surgery status
CPT/HCPCS: 99214

== ENCOUNTER → 2024-07-17 14:17 | Outpatient (BNVA) | payer BC, SELFPAY | PROVIDERS: Visit Provider Physician Assistant Surgical | DX: E66.9 Obesity, unspecified (principal); Z98.84 Bariatric surgery status; E50.9 Vitamin A deficiency, unspecified ==

== ENCOUNTER 2024-08-22 14:47 | Outpatient (AMB) | payer BC, SELFPAY ==
--- NOTE | 2024-08-22 14:30 | MHC.OFFVISWM ---
VS Expanded 08/22/24 14:31 Height 5 ft 9 in Weight 212 lb BMI 31.3 Intake Visit Reasons: tv) PO LSG 07/17/23 Allergies No Known Allergies Allergy (Verified 07/17/24 14:25) HPI Comments Details: This?a?39?yo male who is s/p LSG without hiatal hernia repair on?07/17/23. Presents for 1 year 1 month post op visit. Weight today is 212 pounds, with a BMI of 31.3. There has been a 106.4 pound weight loss,(initial weight 318.4 pounds) since starting the program on 03/29/2023 reflecting a 33.4 % total body weight loss and a weight loss of 72.2 pounds since surgery (operative weight 284.2 pounds) reflecting a 25.4 % TBWL since surgery. No complaints of nausea, emesis, abdominal pain or reflux. Reports infrequent but normal bowel movements every 2-3 days and does not use stool softeners regularly. unable to go to the gym as he needed to work extra for presents for the holidays. He Is now working 2 jobs. He has had difficulty maintaining consistency with the meal plan and exercise plan given increased work requirements. Recommended meal plan includes: 2 Muscle milk, 1.5 scoop in each shake with 10 oz of unsweetened almond milk (30 g per 2 scoops) Meal 6 forks of protein and 6 forks of veggies. drinking about 64 oz water daily Exercise routine includes: lifting weights - 2-3 days per week 2 days treadmill speed 3.5 speed incline 7-12, 500 calorie [facility] Medical History Preprocedural examination SAVANNAH (obstructive sleep apnea) Tooth loose Postoperative nausea Back pain Knee pain Surgical History S/P laparoscopic sleeve gastrectomy Hx of oral surgery Hx of bladder endoscopy Hx of cholecystectomy Social History Household Members: Significant Other Housing: Apartment Are you a primary complex care nurse practitioner to a significant other at home: No Do you presently have visiting nurse or other home services: No Alcohol intake: current Alcohol intake frequency: holidays/special occasions only Comment: bathroom-aware of trip hazard Patient Tobacco Use Status: Never used Tobacco Substance Use Type: Marijuana Telehealth Telehealth Telehealth Platform: Telephone Location of provider rendering services: practice address Location of patient: address on file Patient Identification confirmed using: Name, : Yes Telehealth method: voice only Patient verbally consented to treatment: Yes Patient verbally consented to billing insurance company: Yes Patient informed of any privacy concerns related to visit: Yes Minutes spent on Phone/Video with Pt.: 15 Assessment & Plan Assessment & Plan (1) S/P laparoscopic sleeve gastrectomy: Comment: 07/17/23 Code(s): Z98.84 - Bariatric surgery status Category: Surgical Plan: Patient will increase exercise as he is able as he no longer will need to work extra jobs given the holiday season is almost over. Encouraged to continue the meal plan. Text weight weekly and with any questions or concerns. Return to clinic 2 months.
[2024-08-22 14:31] VITALS: BMI 31.3
== END 2024-08-22 14:51 | disposition home or self-care (01) ==
LOC: HO.HBS 14:47
PROVIDERS: Visit Provider Physician Assistant Surgical
DX: E66.811 Obesity, class 1 (principal); Z68.31 Body mass index [BMI] 31.0-31.9, adult; Z90.3 Acquired absence of stomach [part of]; Z98.84 Bariatric surgery status
CPT/HCPCS: 98967